=== PATIENT | female | born 1965 | race Caucasian/White ===

== ENCOUNTER 2020-05-28 07:01 | Inpatient (IN) | payer OTHER ==
[2020-05-28] MEDS ORDERED: Ketorolac Tromethamine 30 MG/ML VIAL ONE (07:49)
[2020-05-28] MEDS ORDERED: Piperacillin/Tazobactam 3.375 GM VIAL ONE (07:49)
[2020-05-28] MEDS ORDERED: Iopamidol-370 76% 500 ML 1 ML ONE (09:34)
[2020-05-28 10:16] VITALS: BMI 36.8
[2020-05-28] MEDS ORDERED: cefTRIAXone\\ROCEPHIN 2 GM in Sodium Chloride 0.9% 100 ML IVPB SCH (10:45)
[2020-05-28] MEDS: Morphine 2 MG/ML VIAL SLOW IVP PRN ×5 (10:50→22:41)
[2020-05-28] MEDS ORDERED: HumaLOG 300 UNITS/3 ML VIAL SC PRN ×2 (11:14)
[2020-05-28] MEDS ORDERED: Dextrose 5% in Water 1,000 ML IV PRN (11:14)
[2020-05-28] MEDS ORDERED: Dextrose 50% Abboject 50 ML SYRINGE SLOW IVP PRN (11:14)
[2020-05-28] MEDS ORDERED: Acetaminophen 325 MG TAB PO PRN (11:17)
[2020-05-28] MEDS ORDERED: Acetaminophen 650 MG Suppository PR PRN (11:17)
[2020-05-28 11:25] LABS: Bilirubin Negative (Negative); Blood, Urine Trace (Negative); Glucose, Urine (Dipstick) >=1000 mg/dL (Negative); Ketone, Urine Negative (Negative); Leukocyte Small (Negative); Nitrite Negative (Negative); Protein, Urine (Dipstick) 100 mg/dL (Neg-Trace); Urobilinogen 0.2 mg/dL (Less than 2); pH, Urine 5.5 (5.0-9.0)
--- NOTE | 2020-05-28 11:25 | PDOC.FPRHP ---
- History of Present Illness Chief Complaint: Left Flank Pain History of Present Illness: Patient is a 55F with a PMHx of recurrent UTI, DMII, genital herpes, depression , HTN who presented to the ED with complaints of L flank pain. Patient reports that the pain started at 3 am this morning (05/28). She reports the pain was excruciating. The pain felt similar but more severe to when she has had kidney infections in the past. The pain did not radiate but worsened with deep inspirations and movement. The pain continued to get worse while at home, nothing she tried improved the pain. She has been having UTI sx for the past week (dysuria, frequency, urgency) but did not get treated. Yesterday (05/27) she reports general malaise with subjective fevers and myalgia/arthralgia. Patient reports that she has had 3-4 UTIs in the past year. Her UTIs are worse when she is sexually active. She is regularly screened for Hep C 2/2 a sexual partner that was Hep C positive. She has not been sexually active for the past 2 years. She also reports that she has been having bad yeast infections that are "everywhere". She is on Jardiance for DMII. ED Course: She went to [place] ED where a CT was obtained showing a subcapsular hematoma with hemorrhage into the perirenal space with Hgb 9.8. Patient received 30mg Toradol for pain. She was transferred to [facility] ED for further evaluation and urology consultation. In [facility] ED, patient was stable and received 15mg Toradol for pain. Urology was consulted. - Allergies/Adverse Reactions Allergies Allergy/AdvReac Type Severity Reaction Status Date / Time No Known Drug Allergies Allergy Verified 05/28/20 10:04 - Home Medications Medication Instructions Recorded Confirmed Type Atenolol 25 mg PO DAILY 05/28/20 05/28/20 History Empagliflozin [Jardiance] 10 mg PO DAILY 05/28/20 05/28/20 History Levothyroxine Sodium 137 mcg PO DAILY 05/28/20 05/28/20 History Lisinopril 5 mg PO DAILY 05/28/20 05/28/20 History QUEtiapine Fumarate [Seroquel] 50 mg PO DAILY 05/28/20 05/28/20 History buPROPion HCl [Wellbutrin XL] 300 mg PO QAM 05/28/20 05/28/20 History lamoTRIgine [LaMICtal XR] 250 mg PO DAILY 05/28/20 05/28/20 History metFORMIN HCl [Metformin HCl] 1,000 mg PO BID-WM 05/28/20 05/28/20 History valACYclovir [ValTRex] 500 mg PO DAILY 05/28/20 05/28/20 History - History PMHx: Recurrent UTI, DMII, HTN, Depression, CAD, Genital herpes PSHx: Cardiac cath 2017 FHx: Diabetes, HTN Social: Recovering addict-sober since 1997, mostly marijuana but "tried everything" denies IVDA, smokes 1/2 ppd - Review of Systems General: reports: fever/chills, fatigue. denies: weight/appetite/sleep changes Eyes: denies: eye pain, vision changes ENT: denies: nasal congestion, rhinorrhea Respiratory: denies: cough, congestion, shortness of breath Cardiovascular: denies: chest pain, palpitation, edema Gastrointestinal: reports: abdominal pain. denies: nausea, vomiting, diarrhea Genitourinary: reports: dysuria, polyuria, discharge (Reports clear vaginal). denies: incontinence Skin: denies: rashes, lesions Musculoskeletal: reports: pain (Over L flank), tenderness (Over L flank). denies: stiffness, swelling, arthritis/arthralgias Neurological: denies: numbness, syncope Psychological: reports: anxiety, depression - Vital signs BP: 128/81 HR: 87 RR: 18 Tmax: 98.5 Pox: 95% on RA Wt: 109.3 - Physical Exam Constitutional: NAD, well developed HEENT: normocephalic and atraumatic, grossly normal vision, grossly normal hearing, MMM Neck: FROM, no JVD Heart: RRR, normal S1/S2, no murmurs/rubs/gallops, pulses present, no edema Lungs: CTAB, no respiratory distress, good air movement, no rales/rhonchi, no wheezing Abdomen: soft, bowel sounds present, no masses/distention -Abdomen: Tender to palpation on L side Musculoskeletal: normal structure, normal tone, ROM grossly normal -Musculoskeletal: L CVA tenderness Neurological: no focal deficit Skin: no rash/lesions, good turgor Heme/Lymphatic: no unusual bruising or bleeding -Psychiatric: Patient had sporadic tearful episodes during exam and history FMR H&P: Results - Labs Result Diagrams: 05/28/20 21:51 Lab results: Hgb 9.0 g/dL (12.0-16.0) L 05/28/20 10:25 Hct 27.6 % (36.0-47.0) L 05/28/20 10:25 [place] ED pertinent results: CBC: Hgb 9.8, WBC 12.2 CMP: SCr: 1.25, Glucose 252 UA: >1000 glucose, Small WBC, RBC - Radiology Interpretation CT scan - abdomen Status: image reviewed by me, report reviewed by me Additional comment: Subcapsular hematoma with perinephric hemorrhage and possible mass FMR H&P: A/P - Plan Perinephric hemorrhage: - Could be caused from mass seen on CT ABD/P vs complicated UTI vs over anticoagulation vs Other renal abnormaility - Fluid resuscitation, 120 mL/hr NS - CT W WO contrast ABD/P - H&H Q4H - Monitor vital signs - Bedrest w/ hampton - Urology Consulted - If H&H is drastically low or VS unstable, will talk with Dr. Saleh UTI - Ceftriaxone - Follow UCx DMII - No Jardiance, no metformin - Moderate SSI - Accucheck ACHS - A1c CAD - Hold home atenolol HTN - Hold home lisinopril - Hydralazine 10 mg PRN for SBP >180 Depression - Home Wellbutrin, Seroquel, Lamictal Genital Herpes - Valtrex 500 mg QD Anemia - Likely hypovolemic, monitor with H&H Substance abuse - UDS + for methamphetamine and opiates - [employer] patient Hypothyroidism - continue home Levothyroxine Disposition/LOS: Dispo: Patient will be admitted to IMCU for close monitoring of vitals and H&H. LOS >48 hrs FMR H&P: Upper Level - Plan Date/Time: 05/28/20 1125 I, Corazon Frank MD, have evaluated this patient and agree with findings/plan as outlined by international bank manager resident. Pertinent changes/additions are listed here. Subjective: This is a 55yo F here as a transfer from [place] due to UTI complicated by perinephric mass vs hematoma. Patient states that she woke up around 3am this morning to get a drink of water and started to have excruciating pain in her left flank. She has a hx of frequent UTIs over the last year or two. She thinks she has had about 5 in the last year. She just finished a course of Cipro about 2 weeks ago. She started with UTI symptoms about 1 week ago with increased frequency and burning. She also states that she gets frequent yeast infections. She states that she thinks all of this started when she became sexually active again about 2 years ago. Objective: VS: 131/60, 86, 16, 98% RA, 97.8F PE: General: mild distress, morbidly obese Cardio: RRR, no murmurs, rubs or gallops Resp: CTAB, no crackles, wheezes or rhonchi Abd: non distended, soft, normal BS; CVA tenderness on L flank, mod TTP in LLQ/ Lside MSK: FROM Psych: very labile during exam and tearful; axox3 A&P: Retroperitoneal Hematoma Patient with CT demonstrating a left perineprhic hematoma vs mass. - Patient admitted to [facility] for concern for active retroperitoneal bleed. CTA showed no active bleed. - Urology consulted, appreciate recommendations. CV surg consulted per urology for possible embolization. - NS @ 120ml/hr - Morphine for pain - H/H q4 hrs, will trend and transfuse if needed. Type and screen. - Bedrest per urology UTI UA leukocytes +, 4 + bacteria, turbid. Hx of frequent UTIs and yeast infection. - Will start on rocephin - U cx pending DMII Currently on metformin and SGLT2 - A1c pending. Will likely need to be taken off of the SGLT2. Could consider a GLP instead vs insulin depending upon A1c. Hx of CVA - stable. No deficits Hx of DE s/p stent - Stable. No current chest pain. Hold ASA and plavix due to above. HTN - aware, will restart home meds Bipolar disorder - aware, restart home meds Hx of drug use - Patient denies. UDS positive for opiates and amphetamines. - Will drug and alcohol counselor cessation. Dispo: admit to [facility], pending specialist recs Diet: Cl liquid Ppx: SCDs Code: FULL Case discussed with Dr. Rosado Addendum - Attending - Attending Attestation Date/Time: 07/04/12 2208 I personally evaluated the patient and discussed the management with Dr. Romero I agree with the History, Examination, Assessment and Plan documented above with any addition or exceptions noted below.
[2020-05-28 11:29] LABS: Clarity Hazy (Clear)
[2020-05-28 11:33] LABS: Bacteria/HPF 4+ HPF (None Seen); Squamous Epithelial None Seen HPF (0-3); Transitional Epithelial 0-3 HPF (None Seen); WBC/HPF Greater than 50 HPF (0-3)
[2020-05-28] MEDS: Sodium Chloride 0.9% 1,000 ML IV SCH ×2 (12:11→18:39)
--- NOTE | 2020-05-28 12:28 | CON ---
DATE OF CONSULTATION: HISTORY OF PRESENT ILLNESS: Padmini Morales is a 55-year-old female. I was asked to see for possible embolization of a bleeding left kidney. She began having pain about 3 o'clock this morning, and presented to an outlying ER, where a noncontrast CT confirmed a large perirenal hematoma with a hemoglobin of 9.8, and no documented prior hemoglobin studies for comparison. She was transferred here, where repeat hemoglobin about an hour and a half ago was 9. Repeat CT scan with contrast was just performed demonstrating a stable perinephric hematoma with no active extravasation. PAST MEDICAL HISTORY: Includes coronary artery disease with a coronary stent placed in [place], [place], 2 years ago. She has type 2 diabetes mellitus, hypothyroidism, hypertension, obesity, and anxiety. SOCIAL HISTORY: She is a current smoker, a pack a day. MEDICATIONS: Multiple, include 1. Wellbutrin. 2. Metformin. 3. Lisinopril. 4. Atenolol. 5. Levothyroxine. 6. Jardiance. 7. Aspirin. 8. She also takes Plavix 75 mg a day, although has not taken this for about 3 days. PHYSICAL EXAMINATION: GENERAL: She is alert, cooperative lady, in no distress. VITAL SIGNS: Recorded height of 5 feet 9 inches, weight of 249, BMI of 37. Blood pressure 120, heart rate 80. CARDIAC: Regular rate and rhythm. ABDOMEN: Obese, mildly tender throughout, but no guarding. She has palpable femoral pulses bilaterally and no peripheral edema. At this time, she is clinically stable and would expect that she will have some further drop in hemoglobin given the fact that she is somewhat dehydrated and just received contrast load and will require hydration. Baseline creatinine is 1.25, once again it is probably in the face of some dehydration. As discussed with Dr. Alvarado, the patient will have serial hemoglobins and expectant treatment. Job ID: [id number]
[2020-05-28 12:53] LABS: Amphetamine Detected (NotDetected); Barbiturates Screen Not Detected (NotDetected); Benzodiazepine Screen Not Detected (NotDetected); Cocaine Metabolite Screen Not Detected (NotDetected); Medtox Control Line Valid? VALID (VALID); Medtox Reader # READER 4; Methadone Not Detected (NotDetected); Methamphetamine Not Detected (NotDetected); Opiate Screen Detected (NotDetected); Oxycodone Screen Not Detected (NotDetected); Phencyclidine (PCP) Not Detected (NotDetected); THC/Cannabinoid Screen Not Detected (NotDetected); Tricyclic Screen Not Detected (NotDetected)
--- NOTE | 2020-05-28 13:13 | CON ---
DATE OF CONSULTATION: 05/28/2020 REASON FOR CONSULTATION: Retroperitoneal bleed, history of recurrent UTI. HISTORY OF PRESENT ILLNESS: Ms. Morales is a 55-year-old morbidly obese female with history of diabetes, coronary artery disease, who initially presented to [facility] Emergency room as she woke up with acute left-sided flank pain. She denies history of fever or chills. She has been previously on aspirin 325 mg, Plavix due to history of CAD. She relates that her last Plavix dose was about 3 days ago and has taken her aspirin 325 mg yesterday. She relates that she has had recurrent UTIs, and provided ciprofloxacin by Dr. Adrian few days ago. She currently denies dysuria, gross hematuria, or chills. Due to acute onset of left flank pain, she presented to the emergency room in which CT noncontrast was obtained. All imaging, records, which I have reviewed myself, conveyed to the patient. CT on arrival demonstrates a left retroperitoneal hematoma of unclear etiology. There is no evidence of hydronephrosis or urolithiasis of concern. Her arrival hemoglobin is 9.8 with no significant leukocytosis and creatinine of 1.2. Currently, she does have some discomfort, however, appears to be resting comfortably, appears fatigued. PAST MEDICAL HISTORY: Includes hypertension, chronic pain, depression, anxiety, diabetes, migraines, hypertension, COPD, history of TIA, stroke, thyroid disease , and IBS, ho substance abuse PAST SURGICAL HISTORY: Deviated septum surgery. PSYCHIATRIC HISTORY: Includes anxiety. SOCIAL HISTORY: Includes former illicit drug user. History of tobacco abuse. Lives at home with family. Denies alcohol use. ALLERGIES: NO KNOWN DRUG ALLERGIES. HOME MEDICATIONS: Include; 1. Wellbutrin. 2. Metformin 1000 mg b.i.d. 3. Lisinopril. 4. Atenolol. 5. Levothyroxine. 6. Jardiance. 7. Aspirin 325. 8. Plavix 75 mg. REVIEW OF SYSTEMS: Ten-point review of systems as above, otherwise noncontributory. PHYSICAL EXAMINATION: VITAL SIGNS: Stable, temperature 97.6, pulse 81, respiratory rate 18, oxygen saturation 97, and blood pressure 120/73. I's and O's, not documented. GENERAL: The patient appears to be fatigued, however, appears comfortable. HEENT: Grossly unremarkable. HEART: Regular rate. LUNGS: Decreased inspiratory effort. No coarse rhonchi or wheeze appreciated. ABDOMEN: Morbidly obese, protuberant. There is some tenderness in the left flank region. However, there is no gross evidence of obvious mass. However, she does have morbid obesity. No flank ecchymosis is appreciated. EXTREMITIES: No cyanosis, clubbing, or edema. NEUROLOGIC: No gross focal deficits. PSYCHIATRIC: Appears to be appropriate and intact. Skin: no lesions PERTINENT LABORATORY AND IMAGING DATA: White count 12, hemoglobin on arrival was 9.8, recheck hemoglobin is 9.0, and platelet 532. Creatinine is 1.2. Blood sugar is 252. Lactic acid 2.2. UA 100 protein, greater than of 1000 glucose, 7 to 10 rbc's, , no epithelials, 4+ bacteria. COVID-19 is negative. Of note, the UA is obtained from a Brady catheter, which I ordered LORENA. CT of the abdomen and pelvis, which the images I reviewed myself, CT noncontrast demonstrates left subcapsular perinephric hematoma, no evidence of hydronephrosis. CT of the abdomen and pelvis, hematuria protocol. CT angio: which I reviewed with Dr. Reddy, stable left perinephric hematoma. There is no gross extravasation of contrast nor blushing consistent with active bleed. It appears to be stable, comparison to the CT obtained at 4:00 a.m. earlier. There is a fat density lesion in the left lower pole near the hemorrhagic component. This is suspicious for prior history of angiomyolipoma due to fat content. IMPRESSION AND PLAN: Ms. Morales is a 55-year-old morbidly obese female with, 1. History of coronary artery disease, previously on Plavix and aspirin 325. 2. History of diabetes on Jardiance. 3. History of recurrent urinary tract infection with recent UA demonstrates persistent bacteria. 4. Glucosuria, likely medication induced. 5. History of substance abuse 6 Current presentation due to left acute flank pain with no ho trauma demonstrating retroperitoneal hematoma. 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 Usually, angiomyolipoma if it is greater than 5 cm, has propensity for spontaneous bleed. Currently, she is hemodynamically stable, and the degree of hematoma appears to be stable on staging CT angio. I did review her clinical course and imaging with Dr. Saleh, who was on-call for Vascular Surgery. Recommend bedrest, serial H and H, broad-spectrum antibiotics. If hemodynamic compromise, significant decrease in H&H, I have discussed her case with Dr. Saleh in which embolization is the treatment of choice. Regarding her history of recurrent urinary tract infection, she is not a candidate for Jardiance as it will result in significant glucosuria, increasing one's risk of recurrent urinary tract infection. She cannot have further Jardiance. check a hemoglobin A1c, urine tox screen to rule out substance abuse that can exacerbate hypertensive crisis such as cocaine, amphetamines.may have clear liquids, plan is to embolize if she has recurrent intractable bleed, requiring transfusion. Type and cross order in chart. Job ID: [id number] MTDD
[2020-05-28 13:40] LABS: Hemoglobin A1c 7.8 % (4.0-6.0)
[2020-05-28 14:20] LABS: Hemoglobin 8.3 g/dL (12.0-16.0)
[2020-05-28] MEDS: Ondansetron PF 4 MG/2 ML Vial IVP PRN ×2 (14:27→22:41)
--- NOTE | 2020-05-28 14:37 | CT ---
CT ABDOMEN AND PELVIS PERFORMED WITH AND WITHOUT CONTRAST ENHANCEMENT: History: Spontaneous subcapsular hematoma, left kidney. Comparison: Noncontrast study done earlier [facility] at [facility]. FINDINGS: There are bibasilar atelectatic lung changes seen. The liver, spleen, pancreas and gallbladder regions appear unremarkable. Right adrenal gland is normal. Left adrenal gland is obscured. The right kidney is normal in size and appearance. There is a large left perinephric hematoma, it does not appear significantly increased a s compared to the prior examination. There is some fat density along the lower pole of the left kidne y. This could potentially be related to an angiomyolipoma. There is bleeding extending in the pararen al space inferiorly and some fluid or blood within the left pericolic gutter. Again, this is stable. Trace fluid seen within the pelvis. A Brady catheter is in place. IMPRESSION: Stable appearance to the large left perinephric hematoma. Etiology is unclear although there is a fat density area involving the lower pole, and this could potentially represent an angiomyolipoma and co uld possibly be the source of the hemorrhage. Findings discussed with Dr. Alvarado. POS: Majo
--- NOTE | 2020-05-28 18:23 | HP ---
This is a brief history and physical. For further specifics please refer to the resident note. I have examined the patient with resident and agree with the plan. HISTORY OF PRESENT ILLNESS: This is a 55-year-old diabetic female who has had recent recurrent UTIs. Recently completed a course of Cipro. She has signs and symptoms of UTI including urgency, hesitancy, and dysuria. She woke up at approximately 3 a.m. to drink water, had acute left flank pain, sought care in [facility] where CT there showed a left sided subcapsular hematoma with rupture and perinephric blood collection. She was transferred to the [facility] for admission to the resident's service and will have urology consultation. PAST MEDICAL HISTORY: 1. Long standing diabetes. 2. Essential hypertension. 3. Coronary artery disease, status post stent. 4. Cerebrovascular accident in 2007 with no residual deficits. 5. History of recurrent HSV infection. 6. History of substance abuse and of tobacco abuse. 7. Diabetes. 8. Bipolar with depressive symptoms. 9. Adult ADHD. 10. History of hypothyroidism. PAST SURGICAL HISTORY: Heart cath, PTCA of single vessel, history of tonsillectomy, history of nasal septal repair. HABITS: The patient is a smoker. She has smoked since the age of 16. 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 CURRENT MEDICATIONS: 1. Plavix 75 mg daily. 2. Levothyroxine 150 daily. 3. Lisinopril 5 daily. 4. Isosorbide dinitrate 20 b.i.d. 5. Adderall 30 XL at bedtime. 6. Bupropion 300 XL daily. 7. Desvenlafaxine succinate ER 25 daily. 8. Aspirin low dose 81 mg daily. 9. Metformin extended release 500 mg 2 p.o. b.i.d. 10. Jardiance daily. 11. Atorvastatin 80 daily. 12. Atenolol 25. 13. Lamotrigine Extended Release 250 mg daily. ALLERGIES: NONE KNOWN. REVIEW OF SYSTEMS: Notable for recent severe yeast infection associated with antibiotic use and recurrent UTIs. PHYSICAL EXAMINATION: GENERAL: This is an alert, overweight female in [id number] distress. VITAL SIGNS: She is afebrile. Pulses in the 80s and blood pressures in 120/80s currently. HEENT: She is atraumatic and normocephalic. Pupils are equal, round and reactive. NECK: Supple with no JVD. LUNGS: Clear to auscultation. HEART: Has normal sinus rhythm. ABDOMEN: Obese. There is no guarding, rebound or tenderness. The left flank is tender to palpation. EXTREMITIES: Shows no cyanosis, clubbing or edema. ASSESSMENT: Acute left renal subcapsular hematoma with rupture, history of recurrent urinary tract infections, diabetes, Coronary artery disease, status post percutaneousStent, history of tobacco abuse. PLAN: The patient will be admitted and Urology has been consulted. Please refer to resident's notes for further specifics. Job ID: [id number] MTDD
[2020-05-28 18:37] LABS: Hemoglobin 8.2 g/dL (12.0-16.0)
[2020-05-28 22:06] LABS: Hemoglobin 7.9 g/dL (12.0-16.0)
[2020-05-28] MEDS ORDERED: lamoTRIgine 100 MG TAB PO SCH (22:30)
[2020-05-28] MEDS: lamoTRIgine 100 MG TAB PO SCH (22:38)
[2020-05-29] MEDS: Morphine 2 MG/ML VIAL SLOW IVP PRN (02:51)
[2020-05-29 03:14] LABS: #Lymphocytes 2.5 thou/uL (1.20-3.40); #Monocytes 1.2 thou/uL (0.11-0.59); #Neutrophils 10.3 thou/uL (1.40-6.50); %Basophils 0.3 % (0.0-1.0); %Eosinophils 0.1 % (0.0-10.0); %Monocytes 8.6 % (0.0-10.0); %Neutrophils 72.9 % (42.0-75.0); Hemoglobin 8.6 g/dL (12.0-16.0); Mean Corpuscular HGB CONC 32.3 g/dL (32.0-36.0); Mean Corpuscular Hemoglobin 26.9 pg (27.0-31.0); Mean Corpuscular Volume 83.4 fL (78.0-98.0); Platelet Count 469 thou/uL (130-400); Red Blood Cell (RBC) Count 3.19 mill/uL (4.20-5.40); White Blood Cell (WBC) Count 14.1 thou/uL (4.8-10.8)
[2020-05-29 03:30] LABS: Hemoglobin 8.5 g/dL (12.0-16.0)
[2020-05-29 03:40] LABS: Anion Gap 13 mmol/L (10-20); BUN (Urea Nitrogen) 18 mg/dL (9.8-20.1); Calc. Creatinine Clearance 89 mL/min (70-130); Calcium 8.1 mg/dL (7.8-10.44); Carbon Dioxide 20 mmol/L (22-29); Chloride 103 mmol/L (98-107); Estimated GFR-MDRD 43; Glucose 160 mg/dL (70-105); Potassium 3.9 mmol/L (3.5-5.1); Sodium 132 mmol/L (136-145)
[2020-05-29] MEDS: Sodium Chloride 0.9% 1,000 ML IV SCH ×2 (05:21→12:29)
--- NOTE | 2020-05-29 05:26 | PDOC.FM ---
- Subjective Subjective: Pt is a 55 yo F who presented with left flank pain in the setting of left subcapsular perinephric hematoma likely 2/2 spontaneous rupture of an angiomyolipoma. Overnight, patient complained of nausea for which she received 1x Zofran. She said her flank pain was really bad overnight at a 10/10, and she received 1x morphine overnight. The night team increased her morphine from q4h to q2h. Today, patient is very anxious and teary and states she had just had a panic attack. She is very overwhelmed because she "has a lot going on" and feels like she can't provide for her family. She lost her job and feels guilty because she should be looking for a job and not be in the hospital. She plans to call her therapist today. She is also concerned because she now has a dry cough. Denies any recent sick contacts. She endorses feeling gassy and having slight abdominal pain because she has not had a BM in 3-4 days. However, she states her flank pain has improved greatly from 10/10 pain to 5/10 pain. Her H/H and vitals have been stable. denies nausea, vomiting, fevers, chils, CP, CAMPOS, changes in vision, suprapubic pain, hematuria - Objective MAR Reviewed: Yes Vital Signs & Weight: Vital Signs (12 hours) Temp Pulse Ox 05/29/20 04:38 99.2 F 05/29/20 01:45 98.3 F 05/29/20 00:01 96 05/28/20 20:00 99 05/28/20 19:11 98.1 F Weight Weight 113.353 kg Most Recent Monitor Data Heart Rate from ECG 102 NIBP 140/80 NIBP BP-Mean 100 Respiration from ECG 24 SpO2 94 I&O: 05/27/20 05/28/20 05/29/20 06:59 06:59 06:59 Intake Total 3490 Output Total 500 Balance 2990 Result Diagrams: 05/29/20 08:53 05/29/20 03:02 Phys Exam - Physical Examination Constitutional: NAD HEENT: sclera anicteric Neck: supple, full ROM Respiratory: no wheezing, no rhonchi, clear to auscultation bilateral Cardiovascular: RRR, no significant murmur Gastrointestinal: soft, no distention, positive bowel sounds mild tenderness diffusely Musculoskeletal: no edema, pulses present Neurological: moves all 4 limbs Psychiatric: A&O x 3 Deviation from normal: anxious and teary on exam Skin: no rash, normal turgor Dx/Plan - Plan Plan: Retroperitoneal hematoma likely 2/2 spontaneous rupture of angiomyolipoma Patient with CT demonstrating a left perineprhic hematoma vs mass. - Patient admitted to [facility] for concern for active retroperitoneal bleed. CTA showed no active bleed. - Urology consulted, appreciate recommendations. CV surg consulted per urology for possible embolization. - NS @ 80ml/hr - Morphine 2mg q2H for pain - H/H have been stable, will space out to q6h and continue to trend. Will transfuse if needed. - Bedrest per urology UTI - UA leukocytes +, 4 + bacteria, turbid. Hx of frequent UTIs and yeast infection. - Rocephin 1gm (05/28) - Follow UCx DMII - d/c Jardiance because of patient's recurrent UTIs - Moderate SSI - Accucheck ACHS - A1c 7.8 - will consider resuming home Metformin and adding Victoza Anxiety -Hydroxyzine PRN -Patient sees therapist in [place], Dr. Hook once a week and is going to call him today Bipolar Disorder - Home Wellbutrin, Seroquel, Lamictal -Patient endorses history of MDD, but is hesitant to admit to a dx of bipolar Anemia - Likely hypovolemic, monitor with H&H Constipation - started bowel regimen (05/29) -Colace BID, Miralax PRN Hypothyroidism - continue home Levothyroxine Hx of CVA - stable. No deficits Hx of CT s/p stent - Stable. No current chest pain. Hold ASA and plavix due to bleed. HTN - Hold home lisinopril - Hydralazine 10 mg PRN for SBP >180 Genital Herpes - Valtrex 500 mg QD Substance abuse - Patient denies, but UDS + for methamphetamine and opiates - [employer]er patient on cessation Dispo:[facility]CU, pending specialist recs Diet: Cl liquid Ppx: SCDs Code: FULL Addendum - Attending - Attending Attestation Date/Time: 05/29/20 1206 I personally evaluated the patient and discussed the management with Dr. Walker. I agree with the History, Examination, Assessment and Plan documented above with any addition or exceptions noted below. 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 Urology on board, awaiting further recs from them. H/ H stable. Pain controlled and will transition to PO control. Continue to treat for UTI and awaiting cultures. O2 sat issues seems to be related to GABE as normal when awake.
[2020-05-29 06:28] LABS: Hemoglobin 8.2 g/dL (12.0-16.0)
[2020-05-29] MEDS: Levothyroxine Sodium 25 MCG TAB PO SCH (06:39)
[2020-05-29] MEDS: Levothyroxine Sodium 112 MCG TAB PO SCH (06:40)
[2020-05-29] MEDS ORDERED: Polyethylene Glycol 3350 17 GM Packet PO PRN (07:15)
--- NOTE | 2020-05-29 07:35 | PRG ---
DATE OF SERVICE: 05/29/2020 The patient's vital signs have remained stable with her heart rate generally running about 100. Her blood pressure is not documented in the records. She is awake and alert, had somewhat of an uncomfortable night due to discomfort in her back and flank. She seems a bit restless at this moment, but states that she thinks she is generally having less discomfort than she did yesterday. Her hemoglobin levels have remained stable in the 8 to 8-1/2 range. Expect that we can back off on the frequency of her hemoglobin checks and activity level based on Dr. Alvarado's recommendation. Job ID: [id number]
--- NOTE | 2020-05-29 07:52 | CON ---
DATE OF CONSULTATION: 05/29/2020 SUBJECTIVE: The patient is feeling better, has had intermittent nausea; however , pain is adequately controlled. She denies gross hematuria. OBJECTIVE: VITAL SIGNS: Stable at 99, 106, 25, 89, blood pressure 140/80. Highest blood pressure is 160/108. I's and O's 3490 in, 500 out, she is positive 2.9 L. ABDOMEN: Soft, morbidly obese. There is no gross rigidity. No rebound. Discomfort is improved. Urine culture pending. Previous urine culture from December 2019 demonstrating E coli and Pseudomonas, which has been resistant to Rocephin and intermediate sensitivity to ciprofloxacin. Await repeat urine culture. PERTINENT LABORATORY DATA: White count today is 14, hemoglobin stable at 8.2. Her hemoglobin and hematocrit reviewed over the last 24 hours presenting hemoglobin is 9.8, lowest hemoglobin is 7.9. It has been relatively stable at 8.2, 8.6. Sodium 132, creatinine 1.2. Hemoglobin A1c is 7.8. Urinalysis reviewed demonstrating significant glucosuria. Urine tox screen, positive for amphetamines and opiates. COVID-19 is negative. She states that she has been on Adderall. IMPRESSION: 1. Ms. Morales is a 55-year-old morbidly obese female with history of coronary artery disease, recently on Plavix and aspirin 325. 2. History of diabetes, on Jardiance with significant glucosuria. 3. History of recurrent urinary tract infections with recheck urine culture pending. 4. History of substance abuse. 5. Current presentation due to left acute flank pain. 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 There is no evidence of active extravasation. Her hemoglobin and hematocrit are relatively stable. She has been fluid resuscitated, I do anticipate some hemodilutional component. Continue to monitor frequent hemoglobin and hematocrit for another 24 hours. If her hemoglobin and hematocrit remain relatively stable, we will consider transition out of the IMCU tomorrow. Continue indwelling Brady catheter, has been draining clear yellow urine. She is not a candidate to restart her anti-platelet therapy as she presents with acute left retroperitoneal hematoma/bleed. Strict control of her hypertension as her blood pressure has been labile. Recommend 0.9 normal saline to continue as she has component of hyponatremia decreased to 80 mL an hour. Job ID: [id number] MTDD
[2020-05-29] MEDS ORDERED: Non-Formulary Item 1 EACH (Levothyroxine Sodium [Levothyroxine Sodium] 137 MCG) PO SCH (09:00)
[2020-05-29] MEDS ORDERED: lamoTRIgine 100 MG TAB PO SCH (09:00)
--- NOTE | 2020-05-29 09:02 | CON ---
DATE OF CONSULTATION: 05/29/2020 REASON FOR CONSULTATION: Sleep apnea. CONSULTING PHYSICIAN: Dr. Rosado from the [facility]. HISTORY OF PRESENT ILLNESS: Ms. Morales is a 55-year-old female, who presented to the hospital yesterday with complaints of left flank pain. She has been found to have what appears to be a bleeding . This is being treated conservatively as it appears to have stopped on its own. Dr. Alvarado and Dr. Saleh are following. I have asked to see her in regard to sleep apnea. She says she was diagnosed many years ago in [place] with sleep apnea, but did not comply with wearing the apparatus and stop. She does have daytime snoring and hypersomnolence. PAST MEDICAL HISTORY: 1. Urinary tract infection. 2. Hypertension. 3. Depression. 4. Diabetes mellitus, type 2. 5. Coronary artery disease. PAST SURGICAL HISTORY: Cardiac catheterization. FAMILY MEDICAL HISTORY: Remarkable for diabetes and hypertension. SOCIAL HISTORY: Smokes half pack per day. 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 REVIEW OF SYSTEMS: Otherwise negative. PHYSICAL EXAMINATION: VITAL SIGNS: Temperature 98.7, pulse 106, and blood pressure 140/80. HEENT: Unremarkable. NECK: No adenopathy or JVD. CHEST: Clear. CARDIAC: S1 and S2 regular. ABDOMEN: Mildly tender in left flank. EXTREMITIES: No clubbing, cyanosis, or edema. LABORATORY DATA: Hemoglobin 8.2, hematocrit 25.7. Sodium 132, potassium 3.9, chloride 103, CO2 of 20, BUN 18, creatinine 1.2, and glucose 160. ASSESSMENT: 1. Apparent bleeding left kidney -stable. 2. Obstructive sleep apnea. PLAN: The GABE can be further worked up as an outpatient. The patient desires. No further recommendation at this time. Job ID: [id number]
[2020-05-29 09:03] LABS: Hemoglobin 7.7 g/dL (12.0-16.0)
[2020-05-29] MEDS: Bupropion 150 MG XL TAB PO SCH (09:08)
[2020-05-29] MEDS: hydrOXYzine 25 MG TAB PO PRN (09:08)
[2020-05-29] MEDS: valACYclovir 500 MG TAB PO SCH (09:08)
[2020-05-29] MEDS: cefTRIAXone\\ROCEPHIN 1 GM in Sodium Chloride 0.9% 100 ML IVPB SCH (09:08)
[2020-05-29] MEDS: Docusate 100 MG CAP PO SCH ×2 (09:08→20:31)
[2020-05-29] MEDS ORDERED: cefTRIAXone\\ROCEPHIN 2 GM in Sodium Chloride 0.9% 100 ML IVPB SCH (11:00)
[2020-05-29] MEDS ORDERED: Acetaminophen/Codeine 30-300mg Tablet PO SCH ×2 (12:45→13:00)
[2020-05-29 14:38] LABS: Hemoglobin 7.6 g/dL (12.0-16.0)
[2020-05-29] MEDS: Ondansetron ODT 4 MG TAB PO PRN (16:56)
[2020-05-29] MEDS: Acetaminophen/Codeine 30-300mg Tablet PO SCH ×2 (17:10→23:48)
[2020-05-29] MEDS: metFORMIN 500 MG TAB PO SCH (17:10)
[2020-05-29] MEDS: lamoTRIgine 100 MG TAB PO SCH (20:31)
[2020-05-29 20:44] LABS: Hemoglobin 7.7 g/dL (12.0-16.0)
[2020-05-30 02:25] LABS: Hemoglobin 7.3 g/dL (12.0-16.0)
[2020-05-30] MEDS: Acetaminophen/Codeine 30-300mg Tablet PO SCH ×5 (05:11→23:24)
[2020-05-30] MEDS: Levothyroxine Sodium 112 MCG TAB PO SCH (05:11)
[2020-05-30] MEDS: Levothyroxine Sodium 25 MCG TAB PO SCH (05:11)
[2020-05-30] MEDS: hydrOXYzine 25 MG TAB PO PRN (05:12)
[2020-05-30] MEDS: Sodium Chloride 0.9% 1,000 ML IV SCH ×3 (05:13→19:29)
--- NOTE | 2020-05-30 06:16 | PDOC.FM ---
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 Overnight, patient received 1x hydroxyzine for anxiety. Hgb went from 7.7 to 7.3 , vitals WNL. Today, patient is resting comfortably in bed. She states her left flank/ abdominal pain is 3/10 in intensity today compared to 5/10 yesterday. She is on 3L of O2, up from RA yesterday, although she denies trouble breathing. She is satting at 98% so she was decreased to 2L. She is still gassy and has not had a BM. Patient states her anxiety is well controlled, but was not able to call her therapist yesterday. Patient denies CAMPOS, SOB, chest pain, edema, hematuria. - Objective MAR Reviewed: Yes Vital Signs & Weight: Vital Signs (12 hours) Temp Pulse Ox 05/29/20 20:00 99.6 F 95 Weight Weight 113.353 kg Most Recent Monitor Data Heart Rate from ECG 99 NIBP 130/71 NIBP BP-Mean 90 Respiration from ECG 25 SpO2 97 I&O: 05/28/20 05/29/20 05/30/20 06:59 06:59 06:59 Intake Total 3490 2072 Output Total 500 3950 Balance 2990 -1878 Result Diagrams: 05/30/20 11:40 05/30/20 06:16 Phys Exam - Physical Examination Constitutional: NAD HEENT: moist MMs, sclera anicteric Neck: supple, full ROM Respiratory: no wheezing, clear to auscultation bilateral Cardiovascular: RRR, no significant murmur Gastrointestinal: soft, no distention, positive bowel sounds no CVA tenderness, mild tenderness with palpation to LUQ Musculoskeletal: no edema, pulses present Neurological: moves all 4 limbs Psychiatric: normal affect, A&O x 3 Skin: no rash, normal turgor Dx/Plan - Plan Plan: Retroperitoneal hematoma likely 2/2 spontaneous rupture of angiomyolipoma Patient with CT demonstrating a left perinephric hematoma vs mass. - Patient admitted to [facility] for concern for active retroperitoneal bleed. Original CTA showed no active bleed. - Urology consulted, appreciate recommendations. CV surg consulted per urology for possible embolization. - Staging CTA Abd/Pelvis today (05/30), will f/u with urology and CV surgery recs pending results of imaging - NS @ 80ml/hr - Tylenol #3 and hydrocone PRN for pain - H/H have been slowly down trending, patient's vitals WNL. continue to trend q6H. Will transfuse if needed. - Bedrest per urology UTI - UA leukocytes +, 4 + bacteria, turbid. Hx of frequent UTIs and yeast infection. - Continue Rocephin 1gm (05/28) - F/u UCx and sensitivities, prelim results show gram neg rods <5000cfu DMII - d/c Jardiance because of patient's recurrent UTIs - Moderate SSI - Accucheck ACHS - A1c 7.8 - on home Metformin. Will talk to patient about adding a second agent Anxiety -Hydroxyzine PRN -Patient sees therapist in [place], Dr. Hook once a week Bipolar Disorder - Home Wellbutrin, Seroquel, Lamictal -Patient endorses history of MDD, but is hesitant to admit to a dx of bipolar Anemia - Likely hypovolemic, monitor with H&H Constipation - started bowel regimen (05/29) -Colace BID, Miralax PRN Hypothyroidism - continue home Levothyroxine Hx of CVA - stable. No deficits Hx of [place] s/p stent - Stable. No current chest pain. Hold ASA and plavix due to bleed. 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 Walker. I agree with the History, Examination, Assessment and Plan documented above with any addition or exceptions noted below. Patient reports feeling improved. H/H continues to downtrend, will xfuse 1 unit today. Awaiting further Uro recs after her CT complete this morning. Possible embolization in coming days with CV surgery. Pain well controlled.
[2020-05-30 06:41] LABS: #Basophils 0.1 thou/uL (0.0-0.2); #Lymphocytes 2.1 thou/uL (1.20-3.40); #Monocytes 0.9 thou/uL (0.11-0.59); %Basophils 0.7 % (0.0-1.0); %Eosinophils 0.1 % (0.0-10.0); %Lymphocytes 18.9 % (21.0-51.0); %Monocytes 8.1 % (0.0-10.0); %Neutrophils 72.2 % (42.0-75.0); Hemoglobin 7.2 g/dL (12.0-16.0); Mean Corpuscular HGB CONC 31.4 g/dL (32.0-36.0); Mean Corpuscular Hemoglobin 26.4 pg (27.0-31.0); Mean Corpuscular Volume 83.9 fL (78.0-98.0); Mean Platelet Volume 7.2 fL (7.4-10.4); Platelet Count 500 thou/uL (130-400); RBC Distribution Width 13.9 % (11.5-14.5); Red Blood Cell (RBC) Count 2.74 mill/uL (4.20-5.40); White Blood Cell (WBC) Count 11.1 thou/uL (4.8-10.8)
[2020-05-30 06:51] LABS: ALT (SGPT) 9 U/L (8-55); AST (SGOT) 8 U/L (5-34); Albumin 2.9 g/dL (3.5-5.0); Alkaline Phosphatase 100 U/L (40-110); Anion Gap 12 mmol/L (10-20); BUN (Urea Nitrogen) 12 mg/dL (9.8-20.1); Bilirubin, Total 0.3 mg/dL (0.2-1.2); Calc. Creatinine Clearance 95 mL/min (70-130); Calcium 8.1 mg/dL (7.8-10.44); Carbon Dioxide 20 mmol/L (22-29); Chloride 107 mmol/L (98-107); Estimated GFR-MDRD 47; Globulin 2.7 g/dL (2.4-3.5); Glucose 157 mg/dL (70-105); Potassium 4.1 mmol/L (3.5-5.1); Protein, Total 5.6 g/dL (6.0-8.3); Sodium 135 mmol/L (136-145)
--- NOTE | 2020-05-30 07:57 | PRG ---
DATE OF SERVICE: 05/30/2020 SUBJECTIVE: continues to have left flank pain, however, this is mild and adequately controlled. Feels better since admission. She is afebrile. OBJECTIVE: VITAL SIGNS: T-max of 99.8, blood pressure 140/60, pulse 88, 98%. I's and O's 2700 in, 3995 out. She is negative 1.8 L. GENERAL: The patient is in no acute distress. LUNGS: Clear. ABDOMEN: Morbidly obese. Mild left flank tenderness with no ecchymosis. No rigidity. No rebound. Brady catheter remains with concentrated yellow urine. EXTREMITIES: No cyanosis, clubbing, or edema. LABORATORY DATA: Sodium 135, creatinine 1.2, stable. White count 11, hemoglobin 7.2. Admitting creatinine of 9.8. Subsequently slow decrease in H and H. UA with positive bacteria, significant glucosuria. Culture demonstrating gram-negative janet. Sensitivity and ID pending. currently on IV Rocephin. IMPRESSION AND PLAN: 1. Ms. Morales is a 55-year-old female with past medical history of coronary artery disease, recent Plavix and aspirin 325 discontinued, with history of diabetes, on Jardiance, discontinued; due to significant glucosuria 2. History of recurrent urinary tract infection. Current urine culture demonstrating gram-negative janet. Continue Rocephin. 3Prior history of substance abuse. 4.Current presentation due to left flank pain demonstrating a left subcapsular hematoma with a small component of fat suggesting angiomyolipoma. Discussed with patient regarding differential diagnosis of possible spontaneous bleed from angiomyolipoma, versus occult malignancy. As there is significant hematoma, it is difficult to definitively characterize, no prior imaging of record.. She remains hemodynamically stable, slow trend of decrease in H and H. Discussed with Dr. Saleh regarding patient's course. plan is to proceed with a staging CT angio today. The treatment of choice if it is an angiomyolipoma bleed would be selective embolization .If she does undergo embolization in the next few days, she will need to be monitored thereafter for post infarction syndrome. Discussed with patient regarding possible escalation to nephrectomy rarely. Continue IV fluids, for euvolemic status. addendum: Repeat CT reviewed with Dr. Saleh full dose contrast not provided erroneously per radiologist. The size of hematoma is stable, more prominent fat density, consistent with AML. Will transfuse 1 unit of blood, as requested by CV surgery. Dr. Saleh will proceed with selective left renal artery embolization sometime this week. She will need to be monitored postprocedure with broad-spectrum antibiotics, follow urine cultures. Patient has been informed regarding this plan,and agrees. DR Arrington will cover me as I will be off service , pt informed. Job ID: [id number] MTDD
[2020-05-30] MEDS: metFORMIN 500 MG TAB PO SCH (09:10)
--- NOTE | 2020-05-30 09:16 | CT ---
CT ANGIOGRAM ABDOMEN WITH CONTRAST CT ANGIOGRAM PELVIS WITH CONTRAST DATE: 05/30/2020 HISTORY: 55-year-old female with left renal hematoma. TECHNIQUE: IV injection of iodinated contrast: Only 70 mL Isovue-370 was given. Arterial bolus chasing technique. Scan acquisition from top of abdominal aorta to ischial tuberosities. 3-D MIP reconstructions. COMPARISON: CT abdomen and pelvis of 05/28/2020 FINDINGS: Unfortunately, because of the decreased IV contrast dose, there is suboptimal contrast opacification of the arteries. Instead, defect is that of a suboptimal standard CT rather than a CT angiogram. In fact, the arteries are better visualized on the prior study of 05/28/2020 than on the current study. This radiologist spoke to the lead cytogenetic technologist, and instructed him to consult the radiologist prior to giving a reduced dose for CTA, no matter what the GFR is. The large left subcapsular renal hematoma has not significantly changed in size. It distorts and ante riorly displaces the left kidney. Again noted is the small fat density at the inferior aspect of the hematoma, exophytically arising from the lower pole cortex of the left kidney, highly suggestive of an angiomyolipoma, the fatty portion of which measures approximately 1.5 x 1.5 x 1 cm. No obvious renal artery aneurysm or AVM identified. No abdominal aortic aneurysm. There are patchy regions of decreased enhancement in the parenchyma of the left kidney in the upper, mid, and lower poles, greatest at upper pole, suggestive of renal infarctions, which have worsened. The unorganized hemorrhage in the left perirenal space, and in other portions of the left retroperito neum, including left paracolic gutter, left anterior pararenal space and posterior pararenal space, have become slightly smaller, because the blood has accumulated more in the pelvis now. Currently, th ere is a small to moderate amount of free blood in the pelvic cavity, mostly in the presacral space, and some around the broad ligament, all greater than previously. There is a new finding of small bilateral pleural effusions with new consolidations at the posterior bases of the bilateral lower lobes, left greater than right, which presumably represent atelectasis, although aspiration or pneumonia are not completely excluded. IMPRESSION: 1) large subcapsular left renal hematoma, the source of which is highly likely to be due to a exophyt ic renal angiomyolipoma arising from the lower pole of the left kidney. 2) interval worsening of multiple left renal infarctions/ischemia. 3) no interval change in size of the large subcapsular left renal hematoma. 4) the retroperitoneal blood has redistributed by gravity, more into the pelvic cavity. 5) new bibasilar consolidations, left greater than right, with new small bilateral pleural effusions. Atelectasis versus pneumonia or aspiration.
[2020-05-30] MEDS: cefTRIAXone\\ROCEPHIN 1 GM in Sodium Chloride 0.9% 100 ML IVPB SCH (09:34)
[2020-05-30] MEDS: Bupropion 150 MG XL TAB PO SCH (09:35)
[2020-05-30] MEDS: HYDROcodone/Acetaminophen 5/325 mg Tablet PO PRN (09:35)
[2020-05-30] MEDS: valACYclovir 500 MG TAB PO SCH (09:35)
[2020-05-30] MEDS: Docusate 100 MG CAP PO SCH ×2 (09:36→22:36)
[2020-05-30] MEDS ORDERED: Furosemide 20 MG/2 ML VIAL SLOW IVP SCH ×2 (11:30→16:45)
[2020-05-30 11:48] LABS: Hemoglobin 7.4 g/dL (12.0-16.0)
[2020-05-30] MEDS ORDERED: Guaifenesin DM 100-10/5 ML UDCUP PO PRN (12:24)
[2020-05-30] MEDS: Ondansetron PF 4 MG/2 ML Vial IVP PRN (14:56)
[2020-05-30 19:58] LABS: Hemoglobin 8.9 g/dL (12.0-16.0)
--- NOTE | 2020-05-30 22:15 | PQF ---
DATE: 05-30-20 ATTN: DR. JAVY ZAMORANO Please exercise your independent, professional judgment in responding to the clarification form. Clinical indicators are provided on the bottom of this form for your review Please check appropriate box(s): [ x ] Acute Kidney Failure/ DINORA [ ] Insignificant Lab Values [ ] Other diagnosis [ ] Unable to determine In addition, please specify: Present on Admission (POA): [ x] Yes [ ] No [ ] Unable to determine For continuity of documentation, please document condition throughout progress notes and discharge summary. Thank You. CLINICAL INDICATORS - SIGNS / SYMPTOMS/ LABS are present in the medical record: GFR: 05-29-20: 43 05-30-20: 47 CREATININE: 05-29-20: 1.28 05-30-20: 1.20 BUN: 05-29-20: 18 05-30-20: 12 RISK FACTORS: H&P: DR. MARTELL 05-29-20: HX FREQ UTI'S OVER PAST YEAR OR TWO. SHE JUST FINISHED A COURSE OF CIPRO ABOUT 2 WKS AGO, H&P DR. WILLIS 05-29-20: HX DM, ESSENTIAL HTN, CAD, CVA, SUBSTANCE AND TOBACCO ABUSE TREATMENT : MAR: 05-30-20: NS IVF (This form is maintained as a part of the permanent medical record) 2014 [employer]. All Rights Reserved GISELA [email or web address]
[2020-05-30] MEDS: lamoTRIgine 100 MG TAB PO SCH (22:36)
[2020-05-31 00:26] LABS: Hemoglobin 8.6 g/dL (12.0-16.0)
[2020-05-31] MEDS: hydrOXYzine 25 MG TAB PO PRN (03:49)
[2020-05-31 03:54] LABS: #Basophils 0.1 thou/uL (0.0-0.2); #Monocytes 0.9 thou/uL (0.11-0.59); #Neutrophils 7.9 thou/uL (1.40-6.50); %Basophils 0.7 % (0.0-1.0); %Eosinophils 0.4 % (0.0-10.0); %Lymphocytes 18.1 % (21.0-51.0); %Monocytes 8.5 % (0.0-10.0); %Neutrophils 72.4 % (42.0-75.0); Hemoglobin 8.6 g/dL (12.0-16.0); Mean Corpuscular HGB CONC 32.4 g/dL (32.0-36.0); Mean Corpuscular Hemoglobin 27.3 pg (27.0-31.0); Mean Corpuscular Volume 84.4 fL (78.0-98.0); Mean Platelet Volume 7.1 fL (7.4-10.4); Platelet Count 553 thou/uL (130-400); RBC Distribution Width 14.2 % (11.5-14.5); Red Blood Cell (RBC) Count 3.13 mill/uL (4.20-5.40); White Blood Cell (WBC) Count 10.9 thou/uL (4.8-10.8)
[2020-05-31 04:14] LABS: ALT (SGPT) 11 U/L (8-55); AST (SGOT) 10 U/L (5-34); Albumin 3.2 g/dL (3.5-5.0); Alkaline Phosphatase 135 U/L (40-110); Anion Gap 12 mmol/L (10-20); BUN (Urea Nitrogen) 8 mg/dL (9.8-20.1); Bilirubin, Total 0.3 mg/dL (0.2-1.2); Calc. Creatinine Clearance 105 mL/min (70-130); Calcium 8.5 mg/dL (7.8-10.44); Carbon Dioxide 21 mmol/L (22-29); Chloride 106 mmol/L (98-107); Estimated GFR-MDRD 53; Globulin 2.9 g/dL (2.4-3.5); Glucose 159 mg/dL (70-105); Protein, Total 6.1 g/dL (6.0-8.3); Sodium 135 mmol/L (136-145)
[2020-05-31] MEDS: Sodium Chloride 0.9% 1,000 ML IV SCH ×2 (05:25→16:43)
[2020-05-31] MEDS: Acetaminophen/Codeine 30-300mg Tablet PO SCH (05:25)
[2020-05-31] MEDS: Levothyroxine Sodium 25 MCG TAB PO SCH (05:26)
[2020-05-31] MEDS: Levothyroxine Sodium 112 MCG TAB PO SCH (05:26)
--- NOTE | 2020-05-31 05:39 | PDOC.FM ---
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 Overnight, patient received 1 unit of leukocyte reduced RBCs and post H/H was 8.9 and subsequent checks have been stable. Ucx resulted as Ecoli sensitive to Rocephin. Today, patient states she is doing well. She states her anxiety and flank pain is controlled. Pain is 3/10 in intensity, which is improved from 10/10 on admission. She was able to talk to her therapist yesterday which was helpful. She has not had a BM but states she is less gassy. She denies CAMPOS, CP, SOB, abdominal pain, suprapubic pain, hematuria. - Objective MAR Reviewed: Yes Vital Signs & Weight: Vital Signs (12 hours) Temp Pulse Ox 05/31/20 03:26 98.0 F 05/30/20 23:24 98.2 F 05/30/20 20:00 95 05/30/20 19:34 98.9 F Weight Weight 113.353 kg Most Recent Monitor Data Heart Rate from ECG 93 NIBP 137/76 NIBP BP-Mean 96 Respiration from ECG 20 SpO2 95 I&O: 05/29/20 05/30/20 05/31/20 06:59 06:59 06:59 Intake Total 3490 2072 4320 Output Total 500 3950 5625 Balance 5230 -0642 -2580 Result Diagrams: 05/31/20 03:15 05/31/20 03:15 Additional Labs: Cr down trending from 1.2 to 1.08. 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 - Patient admitted to [facility] for concern for active retroperitoneal bleed. Original CTA showed no active bleed. - Urology consulted, appreciate recommendations. CV surg consulted per urology for possible embolization. - Staging CTA Abd/Pelvis(05/30) showed that the size of the hematoma is stable with a more prominent fat density consistent with angiomyolipoma - patient is s/p 1unit of leuk reduced RBCs (05/30), post infusion H/H 8.9/26.4 - patient remains hemodynamically stable, continue to trend H/H q6H - NS @ 100ml/hr - Tylenol #3 and hydrocone PRN for pain - plan for let renal artery embolization tomorrow (06/01) with Dr. Saleh. NPO @ midnight - Bedrest per urology UTI - UA leukocytes +, 4 + bacteria, turbid. Hx of frequent UTIs and yeast infection , patient denies symptoms - Discontinue Rocephin (05/31) - UCx showed Ecoli sensitive to Rocephin, patient is asymptomatic DINORA on admission, patient's Cr was 1.28, likely 2/2 perinephric hematoma -Cr is downtrending, today is 1.08 -on MIVF, will continue to monitor DMII - d/c Jardiance because of patient's recurrent UTIs - Moderate SSI - Accucheck ACHS - A1c 7.8 - on home Metformin, held for procedures with contrast. Will talk to patient about adding a second agent Anxiety -Hydroxyzine PRN -Patient sees therapist in [place], Dr. Hook once a week Bipolar Disorder - Home Wellbutrin, Seroquel, Lamictal -Patient endorses history of MDD, but is hesitant to admit to a dx of bipolar Anemia - Likely hypovolemic, monitor with H&H Constipation - started bowel regimen (05/29) -Colace BID, Miralax PRN Hypothyroidism - continue home Levothyroxine Hx of CVA - stable. No deficits Hx of [place] s/p stent - Stable. No current chest pain. Hold ASA and plavix due to bleed. 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 Walker. I agree with the History, Examination, Assessment and Plan documented above with any addition or exceptions noted below. Patient doing well this morning. No complaints. Pain controlled. H/H stable. Going for embolization procedure tomorrow. Further mgmt pending that intervention and result.
[2020-05-31] MEDS ORDERED: Acetaminophen/Codeine 30-300mg Tablet PO PRN (08:04)
[2020-05-31] MEDS: Bupropion 150 MG XL TAB PO SCH (08:17)
[2020-05-31] MEDS: HYDROcodone/Acetaminophen 5/325 mg Tablet PO PRN ×2 (08:18→16:42)
[2020-05-31] MEDS: Docusate 100 MG CAP PO SCH ×2 (08:19→20:14)
[2020-05-31] MEDS: cefTRIAXone\\ROCEPHIN 1 GM in Sodium Chloride 0.9% 100 ML IVPB SCH (08:19)
[2020-05-31] MEDS: valACYclovir 500 MG TAB PO SCH (08:20)
[2020-05-31] MEDS: Acetaminophen/Codeine 30-300mg Tablet PO PRN ×2 (12:50→20:12)
[2020-05-31] MEDS: Ondansetron PF 4 MG/2 ML Vial IVP PRN (12:50)
[2020-05-31] MEDS: hydrALAZINE 20 MG/ML VIAL SLOW IVP PRN ×2 (14:36→19:17)
--- NOTE | 2020-05-31 16:30 | PRG ---
DATE OF SERVICE: 05/31/2020 SUBJECTIVE: The patient states that she is doing okay. She is having a lot of bother by having to lay in bed all the time and having her Brady catheter, but otherwise has no significant complaints. She is scheduled to have her embolization tomorrow morning with Dr. Saleh. OBJECTIVE: VITAL SIGNS: Temperature 99.2, pulse 107, respirations 21, blood pressure 162/88, and saturation 92% on room air. GENERAL: No apparent distress, communicative and alert. CARDIOVASCULAR: Sinus tachycardia. Normal S1 and S2. ABDOMEN: Soft, nontender, and nondistended. Positive bowel sounds. : Catheter in place, clear urine. EXTREMITIES: 1+ edema bilaterally. LABORATORY EVALUATION: Full set of labs are in the [employer] system, which I have reviewed. Of note, the patient's white count has increased to 8.6 after 1 unit of transfusion. Creatinine is 1.08. ASSESSMENT AND PLAN: A 55-year-old white female with a retroperitoneal hemorrhage secondary to ruptured angiomyolipoma, currently with relatively stable hemoglobin. She has had slow bleeding and is planned for vascular embolization of the angiomyolipoma with Dr. Saleh tomorrow. We will monitor her hemoglobin afterwards. If she remains stable for approximately 2 days, she can begin increasing her activity, ambulating and then can be discharged home. I will continue to monitor her hemoglobin and make recommendations as appropriate while Dr. Alvarado is away. Job ID: [id number]
[2020-05-31 18:16] LABS: Hemoglobin 9.3 g/dL (12.0-16.0)
[2020-05-31] MEDS: lamoTRIgine 100 MG TAB PO SCH (20:11)
[2020-06-01] MEDS: Sodium Chloride 0.9% 1,000 ML IV SCH ×3 (01:27→23:45)
[2020-06-01] MEDS: HYDROcodone/Acetaminophen 5/325 mg Tablet PO PRN ×4 (02:36→19:57)
[2020-06-01] MEDS: Ondansetron PF 4 MG/2 ML Vial IVP PRN (02:36)
[2020-06-01 03:44] LABS: #Basophils 0.1 thou/uL (0.0-0.2); #Monocytes 0.9 thou/uL (0.11-0.59); %Basophils 0.6 % (0.0-1.0); %Eosinophils 0.3 % (0.0-10.0); %Lymphocytes 20.4 % (21.0-51.0); %Monocytes 8.6 % (0.0-10.0); %Neutrophils 70.1 % (42.0-75.0); Mean Corpuscular HGB CONC 32.1 g/dL (32.0-36.0); Mean Corpuscular Hemoglobin 27.1 pg (27.0-31.0); Mean Corpuscular Volume 84.5 fL (78.0-98.0); Mean Platelet Volume 6.8 fL (7.4-10.4); Platelet Count 628 thou/uL (130-400); RBC Distribution Width 14.3 % (11.5-14.5); White Blood Cell (WBC) Count 9.9 thou/uL (4.8-10.8)
[2020-06-01 05:20] LABS: ALT (SGPT) 8 U/L (8-55); AST (SGOT) 9 U/L (5-34); Albumin 3.1 g/dL (3.5-5.0); Alkaline Phosphatase 140 U/L (40-110); Anion Gap 15 mmol/L (10-20); BUN (Urea Nitrogen) 7 mg/dL (9.8-20.1); Bilirubin, Total 0.3 mg/dL (0.2-1.2); Calc. Creatinine Clearance 139 mL/min (70-130); Calcium 8.9 mg/dL (7.8-10.44); Carbon Dioxide 20 mmol/L (22-29); Chloride 105 mmol/L (98-107); Estimated GFR-MDRD 71; Glucose 98 mg/dL (70-105); Potassium 4.1 mmol/L (3.5-5.1); Protein, Total 6.1 g/dL (6.0-8.3); Sodium 136 mmol/L (136-145)
--- NOTE | 2020-06-01 05:45 | PDOC.FM ---
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 Overnight, patient's BP was 185/37 and she received Hydralazine 10mg. BPs have been stable since. H/H stable. Today, patient is scheduled for embolization with Dr. Saleh. She states her left flank pain is well controlled at 01/31. She states she has still not had a BM but is passing gas. No complaints. Denies CAMPOS, CP, SOB, abdominal pain, hematuria. - Objective MAR Reviewed: Yes Vital Signs & Weight: Vital Signs (12 hours) Temp Pulse BP Pulse Ox 06/01/20 03:43 98.0 F 05/31/20 23:50 98.3 F 05/31/20 20:00 98.9 F 91 L 05/31/20 19:17 107 H 185/137 H Weight Weight 114.929 kg Most Recent Monitor Data Heart Rate from ECG 97 NIBP 143/79 NIBP BP-Mean 100 Respiration from ECG 19 SpO2 94 I&O: 05/30/20 05/31/20 06/01/20 06:59 06:59 06:59 Intake Total 2072 4320 Output Total 3950 5667 Balance -5838 1300 Result Diagrams: 06/01/20 03:02 06/01/20 03:02 Phys Exam - Physical Examination Constitutional: NAD HEENT: sclera anicteric Neck: full ROM Respiratory: no wheezing, clear to auscultation bilateral Cardiovascular: RRR, no significant murmur Gastrointestinal: soft, non-tender, positive bowel sounds Musculoskeletal: no edema, pulses present Neurological: moves all 4 limbs Psychiatric: normal affect, A&O x 3 Skin: no rash, normal turgor Dx/Plan - Plan Plan: Retroperitoneal hematoma likely 2/2 spontaneous rupture of angiomyolipoma Patient with CT demonstrating a left perinephric hematoma vs mass. - Patient admitted to [facility] for concern for active retroperitoneal bleed. Original CTA showed no active bleed. - Urology consulted, appreciate recommendations. CV surg consulted per urology for possible embolization. - Staging CTA Abd/Pelvis(05/30) showed that the size of the hematoma is stable with a more prominent fat density consistent with angiomyolipoma - patient is s/p 1unit of leuk reduced RBCs (05/30), post infusion H/H 8.9/26.4 - patient remains hemodynamically stable, with stable Hemoglobin >9 and no hematuria - plan for left renal artery embolization (06/01) with Dr. Saleh - Bedrest per urology, added incentive spirometry to prevent atelectasis - NS @ 100ml/hr - Tylenol #3 and hydrocone PRN for pain UTI - UA leukocytes +, 4 + bacteria, turbid. Hx of frequent UTIs and yeast infection , patient denies symptoms - Discontinue Rocephin (05/31) - UCx showed Ecoli sensitive to Rocephin with <5000 cfu, patient is asymptomatic DINORA on admission, patient's Cr was 1.28, likely 2/2 perinephric hematoma -Cr is downtrending, today is .83 -on MIVF, will continue to monitor DMII - d/c Jardiance because of patient's recurrent UTIs - Moderate SSI - Accucheck ACHS - A1c 7.8 - on home Metformin, held for procedures with contrast. Will talk to patient about adding a second agent Thrombocytosis likely reactive 2/2 anemia platelets at 628,000 -will continue to monitor Anxiety -Hydroxyzine PRN -Patient sees therapist in [place], Dr. Hook once a week Bipolar Disorder - Home Wellbutrin, Seroquel, Lamictal -Patient endorses history of MDD, but is hesitant to admit to a dx of bipolar Anemia - Likely hypovolemic, monitor with H&H Constipation - started bowel regimen (05/29) -Colace BID, Miralax PRN Hypothyroidism - continue home Levothyroxine Hx of CVA - stable. No deficits Hx of [place] s/p stent - Stable. No current chest pain. Hold ASA and plavix due to bleed. 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 Walker. I agree with the History, Examination, Assessment and Plan documented above with any addition or exceptions noted below. Patient going for embolization procedure today. Further mgmt pending that result and further Uro recs. H/H stable, continue to trend.
[2020-06-01] MEDS ORDERED: Midazolam HCl 2 mg/2 ml Vial ONE (07:42)
[2020-06-01] MEDS ORDERED: Fentanyl 100 MCG/2 ML VIAL ONE (08:05)
[2020-06-01] MEDS ORDERED: hydrALAZINE 20 MG/ML VIAL ONE (08:26)
[2020-06-01] MEDS: Bupropion 150 MG XL TAB PO SCH (09:33)
[2020-06-01] MEDS: valACYclovir 500 MG TAB PO SCH (09:33)
[2020-06-01] MEDS: Docusate 100 MG CAP PO SCH ×2 (09:33→19:57)
[2020-06-01] MEDS: Levothyroxine Sodium 25 MCG TAB PO SCH (09:34)
[2020-06-01] MEDS: Levothyroxine Sodium 112 MCG TAB PO SCH (09:34)
[2020-06-01] MEDS: hydrOXYzine 25 MG TAB PO PRN (09:43)
[2020-06-01] MEDS ORDERED: Iopamidol 370 76% 50 ML VIAL FS ONE (10:04)
--- NOTE | 2020-06-01 11:12 | OP ---
DATE OF PROCEDURE: 06/01/2020 PREOPERATIVE DIAGNOSIS: History of bleeding around the left kidney. POSTOPERATIVE DIAGNOSIS: History of bleeding around the left kidney. FINDINGS: Normal renal arteriogram. ANESTHESIA: Lidocaine local with sedation. CONTRAST: 36. FLUOROSCOPY: 16.8 minutes. DESCRIPTION OF PROCEDURE: After adequate anesthesia had been obtained with lidocaine, ultrasound-guided puncture of the right common femoral artery was performed. 5-Divehi dilator and sheath were advanced and through this, initially a Alberto catheter was used to engage the renal artery and injections obtained. A NEAL guide was then advanced over the wire into the left renal artery and attempts to cannulate the lower pole vessel with a Bentson, 0.014 Luge, angled glide wire were all unsuccessful. The patient then had the catheter and sheath removed. FINDINGS: The patient had no evidence to suggest an angioleiomyoma. Renal angiography was entirely unremarkable. Job ID: [id number]
--- NOTE | 2020-06-01 13:54 | PRG ---
DATE OF SERVICE: 06/01/2020 SUBJECTIVE: The patient states she is feeling okay. She is still having some back pain and irritation from a catheter, but otherwise has no other new complaints today. She underwent catheterization today and attempted embolization. However, Dr. Saleh could not see a blushing vessel and could not identify which vessel was leading to the angiomyolipoma. As such he aborted the catheterization and the patient returned back to the ICU. There is currently no ongoing evidence of bleeding per his report. OBJECTIVE: VITAL SIGNS: Temperature 98.1, heart rate 101, blood pressure 187/92, saturations 94% on room air, respiratory rate 23. GENERAL: No apparent distress, communicative, alert. CARDIOVASCULAR: Sinus tachycardia. ABDOMEN: Soft, nontender, nondistended. Obese. Difficult to palpate internal organs. : Brady catheter in place with clear yellow urine. EXTREMITIES: No edema bilaterally. LABORATORY EVALUATION: Full set of labs are in the [facility] system, which I have reviewed. Of note, the patient's white count is 9.9 with a hemoglobin 9.0, which is relatively stable from yesterday. Creatinine is 0.8. ASSESSMENT AND PLAN: A 55-year-old white female with a bleeding angiomyolipoma, status post attempt at vascular embolization which ultimately was not successful. The patient has no apparent ongoing bleeding. I think at this point, the best course of action would be for the patient to handle the embolization as an outpatient. For now since the bleeding has stopped we will continue to monitor with bedrest for another 24 hours. If her hemoglobin remains stable, I think we can take out her catheter and have her start ambulating and monitor for another 24 hours. At that point, if her hemoglobin still remained stable, I think she can be discharged home with close followup with . She will subsequently need a referral to a dedicated interventional specialist to consider outpatient attempts at embolization to prevent future rebleeding. I will continue to follow and manage this patient in place until she returns. Job ID: [id number]
[2020-06-01] MEDS: hydrALAZINE 20 MG/ML VIAL SLOW IVP PRN (19:14)
[2020-06-01] MEDS: lamoTRIgine 100 MG TAB PO SCH (19:56)
[2020-06-02] MEDS: HYDROcodone/Acetaminophen 5/325 mg Tablet PO PRN ×2 (01:37→20:16)
[2020-06-02] MEDS: hydrOXYzine 25 MG TAB PO PRN ×2 (03:24→14:01)
[2020-06-02 03:28] LABS: #Lymphocytes 1.7 thou/uL (1.20-3.40); #Monocytes 0.7 thou/uL (0.11-0.59); #Neutrophils 7.1 thou/uL (1.40-6.50); %Basophils 0.4 % (0.0-1.0); %Eosinophils 0.4 % (0.0-10.0); %Lymphocytes 17.8 % (21.0-51.0); %Monocytes 7.2 % (0.0-10.0); %Neutrophils 74.2 % (42.0-75.0); Hemoglobin 8.4 g/dL (12.0-16.0); Mean Corpuscular Hemoglobin 27.4 pg (27.0-31.0); Mean Corpuscular Volume 82.9 fL (78.0-98.0); Mean Platelet Volume 6.6 fL (7.4-10.4); Platelet Count 656 thou/uL (130-400); RBC Distribution Width 14.4 % (11.5-14.5); Red Blood Cell (RBC) Count 3.08 mill/uL (4.20-5.40); White Blood Cell (WBC) Count 9.6 thou/uL (4.8-10.8)
[2020-06-02 03:54] LABS: ALT (SGPT) 8 U/L (8-55); AST (SGOT) 10 U/L (5-34); Alkaline Phosphatase 129 U/L (40-110); Anion Gap 13 mmol/L (10-20); BUN (Urea Nitrogen) 9 mg/dL (9.8-20.1); Bilirubin, Total 0.2 mg/dL (0.2-1.2); Calc. Creatinine Clearance 137 mL/min (70-130); Calcium 8.3 mg/dL (7.8-10.44); Carbon Dioxide 20 mmol/L (22-29); Chloride 103 mmol/L (98-107); Estimated GFR-MDRD 70; Globulin 2.9 g/dL (2.4-3.5); Glucose 173 mg/dL (70-105); Potassium 3.6 mmol/L (3.5-5.1); Protein, Total 5.9 g/dL (6.0-8.3); Sodium 132 mmol/L (136-145)
--- NOTE | 2020-06-02 05:55 | PDOC.FM ---
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 Overnight, patient's BP were elevated SBP>180 and she receievd 1x hydralazine 10mg. Her BPs remained elevated overnight in the high 150s-170s systolic. Today, patient endorses increased anxiety and was tearful. She endorses stress about her medical situation, her unemployment, and the fact that her boyfriend is incarcerated in [facility]. She states her pain is well controlled, but does endorse bruising on her left flank that started to develop yesterday. Denies CAMPOS , SOB, CP, abdominal pain, suprapubic pain, hematuria. She is tolerating PO without difficulty and is wanting to get up and walk around. Still has not had a bowel movement but is passing gas. We discussed her medications for her diabetes since she used to be on Metformin and Jardiance, but should no longer take Jardiance because of her history of recurrent UTIs and UTI on admission. She used to take Bydureon, and we discussed the possibility of adding it to her home Metformin, but is worried her insurance won't cover it and gets anxiety about giving herself a shot, but would like to consider it. - Objective MAR Reviewed: Yes Vital Signs & Weight: Vital Signs (12 hours) Temp Pulse BP Pulse Ox 06/02/20 04:04 94 L 06/02/20 03:51 97.2 F L 06/01/20 23:36 97.3 F L 06/01/20 20:00 98 06/01/20 19:18 97.8 F 06/01/20 19:14 107 H 185/137 H Weight Weight 114.929 kg Most Recent Monitor Data Heart Rate from ECG 89 NIBP 159/94 NIBP BP-Mean 115 Respiration from ECG 17 SpO2 92 I&O: 05/31/20 06/01/20 06/02/20 06:59 06:59 06:59 Intake Total 4320 1440 3200 Output Total 5619 2042 6510 Balance -1305 -160 -250 Result Diagrams: 06/02/20 02:48 06/02/20 02:48 Phys Exam - Physical Examination Constitutional: NAD HEENT: sclera anicteric Neck: supple, full ROM Respiratory: no wheezing, clear to auscultation bilateral Cardiovascular: RRR, no significant murmur Gastrointestinal: soft, non-tender, no distention, positive bowel sounds Musculoskeletal: no edema Neurological: moves all 4 limbs Psychiatric: A&O x 3 Skin: no rash, normal turgor Deviation from normal: small 3.5cmx 1cm area of ecchymosis on her L side/flank Dx/Plan - Plan Plan: Retroperitoneal hematoma likely 2/2 spontaneous rupture of angiomyolipoma Patient with CT demonstrating a left perinephric hematoma vs mass. - Patient admitted to [facility] for concern for active retroperitoneal bleed. Original CTA showed no active bleed. - Urology consulted, appreciate recommendations. CV surg consulted per urology for possible embolization. - Staging CTA Abd/Pelvis(05/30) showed that the size of the hematoma is stable with a more prominent fat density consistent with angiomyolipoma - patient is s/p 1unit of leuk reduced RBCs (05/30), post infusion H/H 8.9/26.4 - patient remains hemodynamically stable, with stable Hemoglobin and no hematuria - attempt for left renal artery embolization (06/01) with Dr. Saleh was unsuccessful. Plan for outpatient embolization. - Bedrest per urology, incentive spirometry to prevent atelectasis. Possibly can ambulate today and d/c hampton. Will follow up with Urology recs. - NS @ 100ml/hr - Tylenol #3 and hydrocone PRN for pain UTI - UA leukocytes +, 4 + bacteria, turbid. Hx of frequent UTIs and yeast infection , patient denies symptoms - Discontinue Rocephin (05/31) - UCx showed Ecoli sensitive to Rocephin with <5000 cfu, patient is asymptomatic DINORA, resolved on admission, patient's Cr was 1.28, likely 2/2 perinephric hematoma -Cr is .84 DMII - d/c Jardiance because of patient's recurrent UTIs - Moderate SSI - Accucheck ACHS - A1c 7.8 - on home Metformin, held for procedures but will resume. Will consider adding Bydureon on discharge Thrombocytosis likely reactive 2/2 anemia -will continue to monitor Anxiety -Hydroxyzine PRN -Patient sees therapist in [place], Dr. Hook once a week Bipolar Disorder - Home Wellbutrin, Seroquel, Lamictal -Patient endorses history of MDD, but is hesitant to admit to a dx of bipolar Anemia - Likely hypovolemic, monitor with H&H Constipation - started bowel regimen (05/29) -Colace BID, Miralax PRN Hypothyroidism - continue home Levothyroxine Hx of CVA - stable. No deficits Hx of [place] s/p stent - Stable. No current chest pain. Hold ASA and plavix due to bleed. 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 Walker. I agree with the History, Examination, Assessment and Plan documented above with any addition or exceptions noted below. Patient overall stable. H/H with some decline but could be dilutional. Awaiting further Uro recs but hopeful to get patient ambulating today and discharge in the next 1-2 days.
[2020-06-02] MEDS: Levothyroxine Sodium 112 MCG TAB PO SCH (05:58)
[2020-06-02] MEDS: Levothyroxine Sodium 25 MCG TAB PO SCH (05:58)
[2020-06-02] MEDS: Ondansetron ODT 4 MG TAB PO PRN ×2 (05:58→13:46)
[2020-06-02] MEDS ORDERED: Atenolol 25 MG TAB PO SCH (09:00)
[2020-06-02] MEDS: valACYclovir 500 MG TAB PO SCH (09:31)
[2020-06-02] MEDS: Docusate 100 MG CAP PO SCH ×2 (09:31→20:18)
[2020-06-02] MEDS: Bupropion 150 MG XL TAB PO SCH (09:32)
[2020-06-02] MEDS: Lisinopril 5 MG TAB PO SCH (09:32)
[2020-06-02] MEDS: Atenolol 25 MG TAB PO SCH (09:32)
[2020-06-02] MEDS: metFORMIN 500 MG TAB PO SCH ×2 (09:34→18:11)
[2020-06-02 11:13] LABS: INR-International Normal Ratio 1.1; PTT 38.8 sec (22.9-36.1)
[2020-06-02] MEDS: Sodium Chloride 0.9% 1,000 ML IV SCH (18:14)
[2020-06-02] MEDS: lamoTRIgine 100 MG TAB PO SCH (20:19)
[2020-06-03] MEDS: HYDROcodone/Acetaminophen 5/325 mg Tablet PO PRN (03:25)
[2020-06-03] MEDS: Ondansetron ODT 4 MG TAB PO PRN (03:27)
[2020-06-03] MEDS: Sodium Chloride 0.9% 1,000 ML IV SCH (03:38)
[2020-06-03] MEDS: Levothyroxine Sodium 25 MCG TAB PO SCH (04:52)
[2020-06-03] MEDS: Levothyroxine Sodium 112 MCG TAB PO SCH (04:52)
[2020-06-03] MEDS: hydrOXYzine 25 MG TAB PO PRN (04:55)
--- NOTE | 2020-06-03 06:01 | PDOC.FM ---
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 Overnight, no acute events. Patient's hampton was d/c yesterday. Today, patient is resting comfortably in bed. She thinks she has a yeast infection around her perineum and has had some nausea, but the Zofran helps. She has been up and ambulating well, tolerating PO without difficulty. No difficulty with urination since having her hampton out. Denies CP, SOB, abdominal pain, hematuria, CAMPOS. - Objective MAR Reviewed: Yes Vital Signs & Weight: Vital Signs (12 hours) Temp Pulse Resp BP Pulse Ox 06/03/20 04:00 98.2 F 88 18 139/80 92 L 06/02/20 23:43 98.3 F 78 18 117/63 94 L 06/02/20 19:52 98.0 F 86 20 166/84 H 96 Weight Weight 114.929 kg Most Recent Monitor Data Heart Rate from ECG 85 NIBP 160/121 NIBP BP-Mean 134 Respiration from ECG 29 SpO2 91 I&O: 06/01/20 06/02/20 06/03/20 06:59 06:59 06:59 Intake Total 1440 3200 240 Output Total 1600 3450 Balance -160 -250 240 Result Diagrams: 06/03/20 06:55 06/03/20 06:55 Phys Exam - Physical Examination Constitutional: NAD HEENT: sclera anicteric Neck: full ROM Respiratory: no wheezing, clear to auscultation bilateral Cardiovascular: RRR Gastrointestinal: soft, non-tender, no distention, positive bowel sounds Musculoskeletal: no edema Neurological: moves all 4 limbs Psychiatric: normal affect, A&O x 3 Skin: no rash, normal turgor Dx/Plan - Plan Plan: Retroperitoneal hematoma likely 2/2 spontaneous rupture of angiomyolipoma Patient with CT demonstrating a left perinephric hematoma vs mass. - Patient admitted to [facility] for concern for active retroperitoneal bleed. Original CTA showed no active bleed. - Urology consulted, appreciate recommendations. CV surg consulted per urology for possible embolization. - Staging CTA Abd/Pelvis(05/30) showed that the size of the hematoma is stable with a more prominent fat density consistent with angiomyolipoma - patient is s/p 1unit of leuk reduced RBCs (05/30), post infusion H/H 8.9/26.4 - patient remains hemodynamically stable, with stable Hemoglobin and no hematuria - attempt for left renal artery embolization (06/01) with Dr. Saleh was unsuccessful. Plan for outpatient embolization. - NS @ 100ml/hr d/c (06/03) - Tylenol #3 and hydrocone PRN for pain UTI - UA leukocytes +, 4 + bacteria, turbid. Hx of frequent UTIs and yeast infection , patient denies symptoms - Discontinue Rocephin (05/31) - UCx showed Ecoli sensitive to Rocephin with <5000 cfu, patient is asymptomatic DINORA, resolved on admission, patient's Cr was 1.28, likely 2/2 perinephric hematoma -Cr is .84 DMII - d/c Jardiance because of patient's recurrent UTIs - Moderate SSI - Accucheck ACHS - A1c 7.8 - on home Metformin. Will d/c with Metformin 1000mg BID Thrombocytosis likely reactive 2/2 anemia -will continue to monitor Anxiety -Hydroxyzine PRN -Patient sees therapist in [place], Dr. Hook once a week Bipolar Disorder - Home Wellbutrin, Seroquel, Lamictal -Patient endorses history of MDD, but is hesitant to admit to a dx of bipolar Anemia - Likely hypovolemic, monitor with H&H Constipation - started bowel regimen (05/29) -Colace BID, Miralax PRN Hypothyroidism - continue home Levothyroxine Hx of CVA - stable. No deficits Hx of [place] s/p stent - Stable. No current chest pain. Hold ASA and plavix due to bleed. 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 Walker. I agree with the History, Examination, Assessment and Plan documented above with any addition or exceptions noted below. Patient feeling well but having some anxiety related to hospitalization. She ambulated well yesterday. Awaiting morning labs and will discuss with urology if she can in fact be discharged home today.
[2020-06-03 06:54] LABS: #Basophils 0.1 thou/uL (0.0-0.2); #Lymphocytes 2.1 thou/uL (1.20-3.40); #Monocytes 0.8 thou/uL (0.11-0.59); %Basophils 0.8 % (0.0-1.0); %Eosinophils 0.4 % (0.0-10.0); %Lymphocytes 19.1 % (21.0-51.0); %Monocytes 7.3 % (0.0-10.0); %Neutrophils 72.4 % (42.0-75.0); Hemoglobin 7.8 g/dL (12.0-16.0); Mean Corpuscular HGB CONC 32.6 g/dL (32.0-36.0); Mean Corpuscular Hemoglobin 27.5 pg (27.0-31.0); Mean Corpuscular Volume 84.4 fL (78.0-98.0); Mean Platelet Volume 6.6 fL (7.4-10.4); Platelet Count 681 thou/uL (130-400); RBC Distribution Width 14.6 % (11.5-14.5); Red Blood Cell (RBC) Count 2.84 mill/uL (4.20-5.40)
[2020-06-03 07:14] LABS: ALT (SGPT) 10 U/L (8-55); AST (SGOT) 13 U/L (5-34); Alkaline Phosphatase 119 U/L (40-110); Anion Gap 13 mmol/L (10-20); BUN (Urea Nitrogen) 13 mg/dL (9.8-20.1); Bilirubin, Total 0.2 mg/dL (0.2-1.2); Calc. Creatinine Clearance 136 mL/min (70-130); Calcium 8.4 mg/dL (7.8-10.44); Carbon Dioxide 23 mmol/L (22-29); Chloride 105 mmol/L (98-107); Estimated GFR-MDRD 69; Glucose 186 mg/dL (70-105); Potassium 3.7 mmol/L (3.5-5.1); Sodium 137 mmol/L (136-145)
[2020-06-03 07:19] LABS: #Basophils 0.1 thou/uL (0.0-0.2); #Lymphocytes 2.3 thou/uL (1.20-3.40); #Monocytes 0.8 thou/uL (0.11-0.59); #Neutrophils 7.9 thou/uL (1.40-6.50); %Basophils 0.8 % (0.0-1.0); %Eosinophils 0.4 % (0.0-10.0); %Lymphocytes 20.4 % (21.0-51.0); %Monocytes 7.1 % (0.0-10.0); %Neutrophils 71.3 % (42.0-75.0); Hemoglobin 8.2 g/dL (12.0-16.0); Mean Corpuscular HGB CONC 32.5 g/dL (32.0-36.0); Mean Corpuscular Hemoglobin 27.3 pg (27.0-31.0); Mean Corpuscular Volume 84.1 fL (78.0-98.0); Mean Platelet Volume 6.4 fL (7.4-10.4); Platelet Count 673 thou/uL (130-400); RBC Distribution Width 14.5 % (11.5-14.5); Red Blood Cell (RBC) Count 3.01 mill/uL (4.20-5.40)
[2020-06-03 07:41] LABS: ALT (SGPT) 10 U/L (8-55); AST (SGOT) 11 U/L (5-34); Alkaline Phosphatase 118 U/L (40-110); Anion Gap 12 mmol/L (10-20); BUN (Urea Nitrogen) 13 mg/dL (9.8-20.1); Bilirubin, Total 0.2 mg/dL (0.2-1.2); Calc. Creatinine Clearance 144 mL/min (70-130); Calcium 8.6 mg/dL (7.8-10.44); Carbon Dioxide 23 mmol/L (22-29); Chloride 105 mmol/L (98-107); Estimated GFR-MDRD 74; Glucose 171 mg/dL (70-105); Potassium 3.7 mmol/L (3.5-5.1); Sodium 136 mmol/L (136-145)
[2020-06-03] MEDS: Lisinopril 5 MG TAB PO SCH (08:35)
[2020-06-03] MEDS: metFORMIN 500 MG TAB PO SCH (08:35)
[2020-06-03] MEDS: Bupropion 150 MG XL TAB PO SCH (08:35)
[2020-06-03] MEDS: Atenolol 25 MG TAB PO SCH (08:36)
[2020-06-03] MEDS: Docusate 100 MG CAP PO SCH (08:36)
[2020-06-03] MEDS: valACYclovir 500 MG TAB PO SCH (08:42)
[2020-06-03 11:46] VITALS: BP 156/96; TEMP 98.8
--- NOTE | 2020-06-03 15:28 | PRG ---
DATE OF SERVICE: 06/02/2020 SUBJECTIVE: The patient states she is feeling a lot better. She has no more back pain. She is still bothered a little bit by her catheter. She has already gotten up a few times to shower but is technically supposed to be on bedrest. She denies any chest pain or shortness of breath. OBJECTIVE: VITAL SIGNS: Temperature 99, pulse 92, respirations 19, blood pressure 160/121, saturation 98% on room air. GENERAL: No apparent distress, communicative and alert. CARDIOVASCULAR: Regular rate and rhythm. ABDOMEN: Soft, nontender, nondistended. Positive bowel sounds. EXTREMITIES: No edema bilaterally. : Brady catheter in place, secured with clear yellow urine. LABORATORY DATA: The full sets of labs are on the [facility] system which I reviewed. Of note, the patient's hemoglobin is 8.4, white count 9.6, creatinine of 0.8. ASSESSMENT AND PLAN: A 55-year-old white female with an angiomyolipoma which resulted in bleeding and retroperitoneal hemorrhage, status post attempted embolization which was unsuccessful. Bleeding appears to have slowed down or stopped possibly. She is feeling much better. I would recommend that her catheter be removed and she can be lifted from the bed rest activities and begin ambulating. I would recommend monitoring for at least 24 hours at this point further to monitor for ongoing bleeding. If there is no further bleeding going on and her hemoglobin is stable after 24 hours, I do feel the patient will probably be discharged home. She already has followup scheduled with Dr. Vito Arrington as an outpatient. Dr. Raad Campbell will be on-call this weekend and will cover for me in my stead and will continue to monitor her hemoglobin and make further assessments as he deems appropriate. Job ID: [id number]
--- NOTE | 2020-06-05 08:46 | DIS ---
DATE OF ADMISSION: 05/28/2020 DATE OF DISCHARGE: 06/03/2020 RESIDENT: Thi Walker MD ADMITTING ATTENDING: Hunter Rosado MD DISCHARGE ATTENDING: Ld Win MD CONSULTS: Urology, Cardiovascular Surgery and Pulmonology. PROCEDURES: CT of the abdomen and pelvis in the ED showed a large left perinephric hematoma and a possible angiomyolipoma. Subsequent CTA of the abdomen and pelvis showed that the large left subcapsular renal hematoma had not significantly changed in size and it also noted the small density likely angiomyolipoma. Along with interval worsening of multiple left renal infarction and ischemia. Embolization was attempted, but was unsuccessful with CV Surgery but renal angiography during the procedure was entirely unremarkable. PRIMARY DIAGNOSES: Retroperitoneal hematoma likely secondary to spontaneous rupture of angiomyolipoma. SECONDARY DIAGNOSES: 1. Urinary tract infection. 2. Acute kidney injury, resolved. 3. Diabetes type 2. 4. Thrombocytosis likely secondary to reactive anemia. 5. Anxiety. 6. Bipolar disorder. 7. Anemia. 8. Constipation. 9. Hypothyroidism. 10. History of cerebrovascular accident. 11. History of myocardial infarction status post stent. 12. Hypertension. 13. Genital herpes. 14. Substance abuse. DISCHARGE MEDICATIONS: 1. Atenolol 25 mg daily. 2. Lamictal 250 mg at bedtime. 3. Synthroid 25 mcg and Synthroid 112 mcg. 4. Lisinopril 5 daily. 5. Zofran 4 mg q.6 hours p.r.n. 6. Nystatin cream to be applied daily p.r.n. 7. Valtrex 500 mg daily. 8. Wellbutrin 300 mg. 9 Metformin 1000 mg b.i.d. with meals. 10. Seroquel 50 mg daily. DISCONTINUED MEDICATIONS: Jardiance 10 mg daily. HISTORY OF PRESENT ILLNESS/HOSPITAL COURSE: The patient is a 55-year-old female with a past medical history of recurrent UTIs, diabetes type 2, genital herpes, depression, other mental health diagnoses, and hypertension, who presented with complaints of left flank pain. She says that the pain was excruciating and she says it felt similar to when she has had kidney infections in the past. She has been having UTI symptoms for the past week, but did not get it treated. She also endorses general malaise with subjective fevers, myalgia, and arthralgia. She has a history of about 3 to 4 UTIs in the past year and they are more frequent when she is sexually active. She also endorses bad yeast infections. She went to the [place] ED, where she had a CT that showed subscapular hematoma with hemorrhage into the perirenal space and was found to have a hemoglobin of 9.8. She received 30 mg Toradol for pain and transferred to the [place] ED for further evaluation and Urology consultation. The patient was followed by Urology and Cardiovascular Surgery and [facility] Primary Medicine team. The patient was relatively stable throughout admission; however, her H and H continued to trend downwards and received 1 unit of RBCs and afterwards, her hemoglobin remained stable above 8. The patient denied any symptoms of worsening flank pain or hematuria. The patient went to have embolization done for her retroperitoneal hematoma, but it was unsuccessful. Plan is for her to follow up outpatient to have procedure done IR guided embolization. The patient's Jardiance was discontinued because of her history of recurrent UTIs and yeast infections. The patient was sent home on nystatin cream and plan is for the patient to just be on metformin given her A1c of 7.8 and follow up with her primary care doctor and also encouraged lifestyle modification. The patient's home medications of lisinopril and atenolol were held because of her bumped creatinine suggestive of an DINORA on admission and because of her retroperitoneal hematoma. The patient's blood pressures were a bit elevated during hospitalization, but after embolization procedure and after improving creatinine , she was restarted on home medications and blood pressure was stable. DISPOSITION: Stable. DISCHARGE INSTRUCTIONS: 1. Location: Home. 2. Diet: Diabetic diet and renal diet. 3. Activity: Activity as tolerated. 4. Follow up with primary care doctor in 1 to 3 weeks and the patient has an appointment with Urology on 06/08/2020. Plan for outpatient embolization. Job ID: [id number] [id number]
== END 2020-06-03 13:05 | disposition home or self-care (01) | DRG 686 ==
LOC: ERS 07:01 → T4-A 09:48 → IMCU/EMU 12:10 → T4-B 06-02 18:06
PROVIDERS: ADMIT Family Medicine; ATTEND Family Medicine
PROC: 30233N1 Transfusion of Nonautologous Red Blood Cells into Peripheral Vein, Percutaneous Approach (ICD-10-PCS; 2020-05-30)
PROC: B417ZZZ Fluoroscopy of Left Renal Artery (ICD-10-PCS; principal; 2020-06-01)
DX: D17.71 Benign lipomatous neoplasm of kidney (principal); K66.1 Hemoperitoneum; N39.0 Urinary tract infection, site not specified; E87.1 Hypo-osmolality and hyponatremia; N17.9 Acute kidney failure, unspecified; I25.10 Atherosclerotic heart disease of native coronary artery without angina pectoris; E03.9 Hypothyroidism, unspecified; I10 Essential (primary) hypertension; F17.210 Nicotine dependence, cigarettes, uncomplicated; A60.00 Herpesviral infection of urogenital system, unspecified; D64.9 Anemia, unspecified; F11.10 Opioid abuse, uncomplicated; F15.10 Other stimulant abuse, uncomplicated; F31.9 Bipolar disorder, unspecified; F90.9 Attention-deficit hyperactivity disorder, unspecified type; E66.9 Obesity, unspecified; G89.29 Other chronic pain; G43.909 Migraine, unspecified, not intractable, without status migrainosus; F41.0 Panic disorder [episodic paroxysmal anxiety]; G47.33 Obstructive sleep apnea (adult) (pediatric); B96.20 Unspecified Escherichia coli [E. coli] as the cause of diseases classified elsewhere; D47.3 Essential (hemorrhagic) thrombocythemia; K59.00 Constipation, unspecified; Z79.899 Other long term (current) drug therapy; I25.2 Old myocardial infarction; Z79.890 Hormone replacement therapy; Z79.84 Long term (current) use of oral hypoglycemic drugs; Z87.440 Personal history of urinary (tract) infections; Z86.73 Personal history of transient ischemic attack (TIA), and cerebral infarction without residual deficits; Z68.37 Body mass index [BMI] 37.0-37.9, adult; Z79.82 Long term (current) use of aspirin; Z79.02 Long term (current) use of antithrombotics/antiplatelets
CPT/HCPCS: 36251; 36415; 36416; 36430; 74174; 74178; 76942; 80048; 80053; 80306; 83036; 85014; 85018; 85025; 85610; 85730; 86850; 86900; 86901; 87077; 87086; 87186; 94760; 96365; 96375; 99152; 99153; J0360; J0696; J1885; J1940; J2250; J2270; J2405; J2543; J3010; J3490; P9016; Q0162; Q9967

== ENCOUNTER 2020-06-27 07:46 | Outpatient (CLI) | payer OTHER ==
--- NOTE | 2020-06-27 09:15 | CT ---
CT ABDOMEN AND PELVIS WITH AND WITHOUT CONTRAST: HISTORY: Hematuria. COMPARISON: A CT angiogram 05/30/2020. FINDINGS: Lung bases are clear. No pericardial effusion. The left subcostal hematoma is more organized than on previous examination with a peripheral developi ng pseudocapsule. No significant interval growth of the craniocaudal and transverse dimensions measu ring 13 and 5.5 cm, respectively, unchanged. There is mass effect involving the left kidney, moderate, with minimal asymmetric decreased enhanceme nt on the nephrographic phase which is still corticomedullary. There is contrast excretion into the collecting systems on the delayed phase of contrast, although not yet within the ureter although on t he delayed phase of the right renal collecting system is filled with contrast and the right ureter is filled with partial filling of the urinary bladder. Reactive left perinephric lymph nodes are similar. The aortic contour is similar. 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 Liver, spleen, pancreas, and adrenal glands are unremarkable. No dilated loops of large or small bow el. No free intraperitoneal gas or fluid. Appendix is visualized and is normal. No acute osseous abnormality. Advanced degenerative changes o f the lumbar spine with Modic 3 end plate changes. IMPRESSION: More organized subcapsular hematoma left kidney without any significant resorption. Given the slight delayed left nephrogram, the patient is at risk for page kidney, and close attenuation to patient's blood pressure is recommended. 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 POS: H
[2020-06-27] MEDS ORDERED: Iopamidol-370 76% 500 ML 1 ML ONE (10:56)
== END 2020-06-27 07:47 | disposition home or self-care (01) ==
LOC: BICCT 07:46
PROVIDERS: ATTEND Urology
DX: K66.1 Hemoperitoneum (principal); D17.71 Benign lipomatous neoplasm of kidney; S37.012A Minor contusion of left kidney, initial encounter; E11.65 Type 2 diabetes mellitus with hyperglycemia; D64.9 Anemia, unspecified; R81 Glycosuria
CPT/HCPCS: 36415; 74178; 80048; 82565; 85014; 85018; Q9967

== ENCOUNTER 2023-06-06 11:15 | Outpatient (CLI) | payer BC | END 2023-06-06 11:16 | disposition home or self-care (01) | LOC: BICCT 11:15 | PROVIDERS: ATTEND Nurse Practitioner Family | DX: Z12.2 Encounter for screening for malignant neoplasm of respiratory organs (principal); F17.210 Nicotine dependence, cigarettes, uncomplicated | CPT/HCPCS: 71271 ==

== ENCOUNTER 2024-11-22 05:28 | Inpatient (IN) | payer BC ==
[2024-11-22] MEDS ORDERED: Adenosine 6 mg (2 mL) VIAL ONE (05:42)
[2024-11-22] MEDS ORDERED: Verapamil 5 MG/2 ML VIAL ONE (05:43)
[2024-11-22] MEDS ORDERED: Nitroglycerin 50 MG/250 ML BOT 250 ML ONE (05:43)
[2024-11-22] MEDS ORDERED: Midazolam HCl 2 mg/2 ml Vial ONE (05:43)
[2024-11-22] MEDS ORDERED: Heparin 10,000 UNITS/ 10 ML VIAL ONE ×2 (05:43→07:10)
[2024-11-22] MEDS ORDERED: PHENYLEPHRINE-NS 100 MCG/ML 10 ML SYRINGE ONE ×2 (05:43→07:46)
[2024-11-22] MEDS ORDERED: fentaNYL 50 mcg/mL 1 mL Vial ONE (05:43)
[2024-11-22] MEDS ORDERED: Atropine Sulfate 1 mg/10 ml Syringe ONE (05:44)
[2024-11-22 06:23] LABS: #Basophils 0.04 10x3/uL (0.0-0.2); %Basophils 0.4 % (0.0-1.0); %Eosinophils 2.5 % (0.0-10.0); %Lymphocytes 18.1 % (21.0-51.0); %Monocytes 5.1 % (0.0-10.0); %Neutrophils 73.4 % (42.0-75.0); Hematocrit 35.9 % (36.0-47.0); Hemoglobin 11.5 g/dL (12.0-16.0); Mean Corpuscular Hemoglobin 26.1 pg (27.0-31.0); Mean Corpuscular Volume 81.6 fL (78.0-98.0); Mean Platelet Volume 9.4 fL (7.4-10.4); Platelet Count 433 10x3/uL (130-400); RBC Distribution Width 14.7 % (11.5-14.5)
[2024-11-22 06:51] LABS: ALT (SGPT) 29 U/L (8-55); AST (SGOT) 16 U/L (5-34); Albumin 3.4 g/dL (3.5-5.0); Alkaline Phosphatase 110 U/L (40-110); Anion Gap 18 mmol/L (10-20); BUN (Urea Nitrogen) 26 mg/dL (9.8-20.1); Bilirubin, Total 0.3 mg/dL (0.2-1.2); Calc. Creatinine Clearance 0 mL/min (70-130); Calcium 8.4 mg/dL (7.8-10.44); Carbon Dioxide 16 mmol/L (22-29); Chloride 108 mmol/L (98-107); Estimated GFR 44; Globulin 3.5 g/dL (2.4-3.5); Glucose 224 mg/dL (70-105); Potassium 4.7 mmol/L (3.5-5.1); Protein, Total 6.9 g/dL (6.0-8.3); Sodium 137 mmol/L (136-145)
[2024-11-22] MEDS ORDERED: TICAGRELOR 90 MG TABLET ONE (06:55)
[2024-11-22] MEDS ORDERED: Ondansetron PF 4 MG/2 ML Vial ONE (07:21)
[2024-11-22 07:39] LABS: Troponin I 0.374 ng/mL (< 0.028)
[2024-11-22] MEDS ORDERED: NOREPINEPHRINE 8 MG/250 ML-D5W 250 ML ONE (07:46)
[2024-11-22 08:35] VITALS: BMI 39.0
[2024-11-22] MEDS: Aspirin Chewable 81 MG TAB PO SCH (09:13)
[2024-11-22] MEDS: Sodium Chloride 0.9% 1,000 ML IV SCH (09:20)
[2024-11-22] MEDS: TICAGRELOR 90 MG TABLET PO SCH (09:44)
[2024-11-22] MEDS ORDERED: Morphine 4 MG/ML VIAL SLOW IVP PRN (10:03)
[2024-11-22] MEDS: Morphine 2 MG/ML VIAL SLOW IVP PRN (10:16)
[2024-11-22] MEDS ORDERED: Dextrose 5% in Water 1,000 ML IV PRN (10:25)
[2024-11-22] MEDS ORDERED: Glucagon 1 MG/ML KIT IM PRN (10:25)
[2024-11-22] MEDS ORDERED: Dextrose 50% Abboject 50 ML SYRINGE SLOW IVP PRN (10:25)
[2024-11-22] MEDS ORDERED: Insulin Lispro 100 UNIT/ML 10 ML VIAL SC PRN (10:25)
[2024-11-22 12:13] LABS: Troponin I 81.315 ng/mL (< 0.028)
[2024-11-22] MEDS ORDERED: Iopamidol 370 76% 100 ML VIAL ONE (12:15)
[2024-11-22] MEDS ORDERED: NOREPINEPHRINE 8 MG/250 ML-D5W 250 ML IVPB SCH (16:15)
[2024-11-22] MEDS: Atorvastatin Calcium 40 MG TAB PO SCH (21:07)
[2024-11-22] MEDS: Insulin Lispro 100 UNIT/ML 10 ML VIAL SC PRN (21:15)
[2024-11-23 04:29] LABS: #Basophils 0.03 10x3/uL (0.0-0.2); %Basophils 0.3 % (0.0-1.0); %Eosinophils 2.9 % (0.0-10.0); %Lymphocytes 27.7 % (21.0-51.0); %Monocytes 7.2 % (0.0-10.0); %Neutrophils 61.7 % (42.0-75.0); Hematocrit 30.2 % (36.0-47.0); Hemoglobin 9.7 g/dL (12.0-16.0); Mean Corpuscular HGB CONC 32.1 g/dL (32.0-36.0); Mean Corpuscular Hemoglobin 26.6 pg (27.0-31.0); Mean Corpuscular Volume 82.7 fL (78.0-98.0); Mean Platelet Volume 9.4 fL (7.4-10.4); Platelet Count 325 10x3/uL (130-400); Red Blood Cell (RBC) Count 3.65 mill/uL (4.20-5.40)
[2024-11-23 05:07] LABS: ALT (SGPT) 38 U/L (8-55); AST (SGOT) 93 U/L (5-34); Albumin 2.8 g/dL (3.5-5.0); Alkaline Phosphatase 97 U/L (40-110); Anion Gap 13 mmol/L (10-20); BUN (Urea Nitrogen) 23 mg/dL (9.8-20.1); Bilirubin, Total 0.3 mg/dL (0.2-1.2); Calc. Creatinine Clearance 88 mL/min (70-130); Calcium 8.3 mg/dL (7.8-10.44); Carbon Dioxide 20 mmol/L (22-29); Chloride 109 mmol/L (98-107); Estimated GFR 47; Globulin 3.2 g/dL (2.4-3.5); Glucose 161 mg/dL (70-105); Potassium 4.5 mmol/L (3.5-5.1); Sodium 137 mmol/L (136-145)
[2024-11-23] MEDS: BuPROPion XL 150 MG ER.TAB PO SCH (11:52)
[2024-11-23 13:11] VITALS: BMI 39.4
[2024-11-23] MEDS: Venlafaxine HCl XR 75 MG CAP PO SCH (17:12)
[2024-11-23] MEDS: Aripiprazole 10 MG TAB PO SCH (17:12)
[2024-11-24] MEDS: Levothyroxine 150 MCG TAB PO SCH (05:38)
[2024-11-24] MEDS ORDERED: LAMOTRIGINE 300 MG PO SCH (09:00)
[2024-11-24] MEDS: Aripiprazole 10 MG TAB PO SCH (09:42)
[2024-11-24] MEDS: BuPROPion XL 150 MG ER.TAB PO SCH (09:43)
[2024-11-24] MEDS: Venlafaxine HCl XR 75 MG CAP PO SCH (09:45)
[2024-11-24] MEDS: Clopidogrel Bisulfate 300 MG TAB PO SCH ×2 (14:46→14:47)
[2024-11-24] MEDS: FLU (Fluarix Triv) TS24-25(6MOS UP)/PF 45 MCG/0.5 ML Syringe IM ONE (14:46)
[2024-11-24 15:33] VITALS: BP 141/80; TEMP 98.7
[2024-11-25] MEDS ORDERED: Clopidogrel Bisulfate 75 MG TAB PO SCH (09:00)
== END 2024-11-24 17:35 | disposition home or self-care (01) | DRG 322 ==
LOC: ERS 05:28 → SDC 06:02 → CCU 07:40 → 2NO 11-23 15:50
PROVIDERS: ADMIT Internal Medicine Cardiovascular Disease; ATTEND Internal Medicine Cardiovascular Disease
PROC: 4A023N7 Measurement of Cardiac Sampling and Pressure, Left Heart, Percutaneous Approach (ICD-10-PCS; principal; 2024-11-22)
PROC: 027034Z Dilation of Coronary Artery, One Artery with Drug-eluting Intraluminal Device, Percutaneous Approach (ICD-10-PCS; 2024-11-22)
PROC: B2151ZZ Fluoroscopy of Left Heart using Low Osmolar Contrast (ICD-10-PCS; 2024-11-22)
PROC: B2101ZZ Fluoroscopy of Single Coronary Artery using Low Osmolar Contrast (ICD-10-PCS; 2024-11-22)
DX: I21.19 ST elevation (STEMI) myocardial infarction involving other coronary artery of inferior wall (principal); I25.10 Atherosclerotic heart disease of native coronary artery without angina pectoris; I25.2 Old myocardial infarction; E11.9 Type 2 diabetes mellitus without complications; I51.3 Intracardiac thrombosis, not elsewhere classified; E03.9 Hypothyroidism, unspecified; I10 Essential (primary) hypertension; Z96.641 Presence of right artificial hip joint; F41.9 Anxiety disorder, unspecified; F17.210 Nicotine dependence, cigarettes, uncomplicated; Z79.899 Other long term (current) drug therapy; F31.9 Bipolar disorder, unspecified; Z79.82 Long term (current) use of aspirin; Z79.4 Long term (current) use of insulin; I77.9 Disorder of arteries and arterioles, unspecified
CPT/HCPCS: 36140; 36415; 36416; 71045; 80053; 83690; 83880; 84484; 85025; 85347; 85610; 85730; 92941; 92978; 93005; 93010; 93458; 93798; 94760; 96374; 96375; 99152; 99153; 99285; C1753; C1769; C1874; C1887; C1894; C9606; J0153; J0461; J1644; J1815; J2250; J2272; J2405; J3010; J7030; Q9967